=== PATIENT | female | born 1975 | race Caucasian/White ===

== ENCOUNTER → 2021-09-15 02:10 | Outpatient (CLI) | payer BC, SELFPAY ==
[2021-09-15 18:05] LABS: Influenza Control Positive
[2021-09-16 03:58] LABS: SARS-CoV-2 RNA PCR Negative
== END ==
PROVIDERS: PCP Family Medicine; Visit Provider Physician Assistant
DX: R05.9 Cough, unspecified (principal); R50.9 Fever, unspecified; R68.89 Other general symptoms and signs; Z20.822 Contact with and (suspected) exposure to COVID-19
CPT/HCPCS: 87804; C9803; U0003; U0005

== ENCOUNTER → 2021-09-24 06:54 | Outpatient (CLI) | payer BC, SELFPAY ==
--- NOTE | ~2021-09-24 | XR_ITS ---
XR chest 2V DATE: 09/24/2021 07:09 INDICATION: Cough TECHNIQUE: PA and lateral views COMPARISON: 06/15/2017 PA chest FINDINGS: Normal heart size. No hilar or mediastinal enlargement. No pulmonary infiltrate or consolid ation, pleural effusion or pulmonary vascular congestion or pneumothorax. Included skeletal structures are unremarkable. IMPRESSION: No active cardiopulmonary disease Reviewed, dictated and finalized at location A. HOME HEALTH
== END ==
PROVIDERS: PCP Family Medicine; Visit Provider Physician Assistant
DX: R05.9 Cough, unspecified (principal)
CPT/HCPCS: 71046

== ENCOUNTER → 2021-11-18 09:17 | Outpatient (CLI) | payer BC, SELFPAY ==
[2021-11-18 16:39] LABS: SARS-CoV-2 RNA PCR Negative
== END ==
PROVIDERS: PCP Family Medicine; Visit Provider Dermatology
DX: R50.9 Fever, unspecified (principal); Z20.822 Contact with and (suspected) exposure to COVID-19
CPT/HCPCS: C9803; U0003; U0005

== ENCOUNTER → 2022-04-29 12:39 | Outpatient (CLI) | payer BC, SELFPAY ==
--- NOTE | ~2022-04-29 | US_ITS ---
US thyroid INDICATION: Follow-up thyroid nodule TECHNIQUE: Real-time sonographic images of the thyroid gland were obtained. COMPARISON: No prior studies for comparison. FINDINGS: The right thyroid lobe measures 4.5 x 2.3 x 2.3 cm. The left thyroid lobe measures 4.1 x 1 .2 x 1.1 cm. There is normal echotexture and echogenicity throughout the thyroid gland. There is a so lid right thyroid hyperechoic mass which is wider than tall, ill-defined margins and no echogenic foc i. This mass measures 2.6 x 2.2 x 2 cm, increased compared with prior study when it measured 2 x 1.6 x 1.5 cm. This is thyroid classification TR 3 and meets criteria for ultrasound-guided fine-needle as piration biopsy. Normal vascular flow is present. IMPRESSION: 1. Large and right thyroid nodule measuring up to 2.6 cm. Ultrasound-guided fine-needle aspiration b iopsy recommended. Reviewed, dictated and finalized at location A. IMPRESSION: 1. Large and right thyroid nodule measuring up to 2.6 cm. Ultrasound-guided fi ne-needle aspiration biopsy recommended.
== END ==
PROVIDERS: PCP Family Medicine; Visit Provider Physician Assistant
DX: E04.1 Nontoxic single thyroid nodule (principal)
CPT/HCPCS: 76536

== ENCOUNTER 2022-06-10 08:22 | Outpatient (CLI) | payer BC, SELFPAY ==
--- NOTE | ~2022-06-10 | MM_ITS ---
EXAMINATION: MM screening [facility] BI w diamond HISTORY: Screening mammogram TECHNIQUE: Craniocaudal and mediolateral oblique 3-D tomosynthesis images were obtained and synthetic 2-D images were generated. CAD analysis was submitted and interpreted. COMPARISON: 10/25/2018, 08/29/2017, 08/21/2007 BREAST PARENCHYMAL COMPOSITION: There are scattered areas of fibroglandular density. FINDINGS: There is no suspicious mass, calcification, or architectural distortion to suggest malignan cy in either breast. There has been no suspicious interval change. IMPRESSION: 1. No mammographic evidence of malignancy. 2. Recommend routine screening mammography in one year. BI-RADS Category 1: Negative Reviewed, dictated and finalized at location A.
== END 2022-06-10 08:23 | disposition home or self-care (01) ==
LOC: ANHIMG 08:23
PROVIDERS: PCP Family Medicine; Visit Provider Physician Assistant
DX: Z12.31 Encounter for screening mammogram for malignant neoplasm of breast (principal)
CPT/HCPCS: 77063; 77067

== ENCOUNTER 2022-07-23 09:29 | Outpatient (CLI) | payer BC, SELFPAY ==
--- NOTE | ~2022-07-23 | XR_ITS ---
EXAMINATION: XR chest 2V DATE: 07/23/2022 09:45 INDICATION: Fever, cough and congestion TECHNIQUE: PA and lateral views of the chest were obtained. COMPARISON: Chest radiograph dated 09/24/2021 FINDINGS: The lungs remain clear with no focal airspace opacities, pulmonary edema, pleural effusion or pneumot horax. The cardiomediastinal silhouette is normal. Mild to moderate thoracic spondylosis. IMPRESSION: 1. No acute cardiopulmonary disease. Reviewed, dictated and finalized at location B.
== END 2022-07-23 09:30 | disposition home or self-care (01) ==
LOC: ANHIMG 09:35
PROVIDERS: PCP Family Medicine; Visit Provider Physician Assistant
DX: R05.9 Cough, unspecified (principal)
CPT/HCPCS: 71046

== ENCOUNTER 2022-07-28 09:37 | Outpatient (CLI) | payer BC, SELFPAY ==
--- NOTE | ~2022-07-28 | CT_ITS ---
EXAMINATION: CT diagnostic chest wo con DATE: 07/28/2022 09:53 INDICATION: Chronic cough, shortness of breath TECHNIQUE: Computed tomography (CT) of the chest was performed without intravenous contrast. The dose -length product (DLP) was 561.54 mGy-cm. Automated exposure control and iterative reconstruction tech nique were employed. COMPARISON: None FINDINGS: There is a 7 mm nodule in the right lower lobe. The lungs are free of focal airspace opacit ies. No pleural effusion or pneumothorax. There is a moderate-sized hiatal hernia. No pathologically enlarged thoracic lymph nodes are identified. The heart size is normal. There is mild thoracic spondy losis. IMPRESSION: 1. No CT correlate for the patient's symptoms. 2. Indeterminate nodule of the right lower lobe. Follow-up low-dose CT in 6-12 months is recommended. Reviewed, dictated and finalized at location B. CLERK
== END 2022-07-28 09:38 | disposition home or self-care (01) ==
PROVIDERS: PCP Family Medicine; Visit Provider Nurse Practitioner Family
DX: R05.3 Chronic cough (principal); R06.02 Shortness of breath
CPT/HCPCS: 71250

== ENCOUNTER 2022-09-01 15:17 | Outpatient (CLI) | payer BC, SELFPAY ==
[2022-09-01 16:07] LABS: Influenza A QL RT-PCR Negative (Negative); Influenza B QL RT-PCR Negative (Negative); SARS-CoV-2 RNA PCR Positive
== END 2022-09-01 15:18 | disposition home or self-care (01) ==
LOC: ANHLAB 15:19
PROVIDERS: PCP Family Medicine; Visit Provider Physician Assistant
DX: U07.1 COVID-19 (principal)
CPT/HCPCS: 87636

== ENCOUNTER → 2022-12-08 15:01 | Outpatient (CLI) | payer BC, SELFPAY ==
--- NOTE | ~2022-12-08 | XR_ITS ---
XR hip BI 2V w AP pelvis DATE: 12/08/2022 15:21 INDICATION: Right hip pain TECHNIQUE: AP pelvis. AP and lateral views of each hip. COMPARISON: 01/2016 right hip FINDINGS: Transitional lumbosacral vertebra. Normal alignment at the pubic symphysis and sacroiliac joints. No pelvic fracture or bone destruction is detected. Minimal degenerative spurring of the left femoral head consistent with mild osteoarthritis. No fractu re or dislocation, avascular necrosis or bone destruction of the hips is noted. IMPRESSION: Mild left hip osteoarthritis Reviewed, dictated and finalized at location B.
== END ==
PROVIDERS: PCP Family Medicine; Visit Provider Physician Assistant
DX: M25.551 Pain in right hip (principal); M16.12 Unilateral primary osteoarthritis, left hip
CPT/HCPCS: 73521

== ENCOUNTER 2023-04-13 14:22 | Outpatient (CLI) | payer BC, SELFPAY ==
--- NOTE | ~2023-04-13 | CT_ITS ---
EXAMINATION: CT diagnostic chest wo con DATE: 04/13/2023 14:54 INDICATION: Solitary pulmonary nodule TECHNIQUE: Computed tomography (CT) of the chest was performed without intravenous contrast. The dose -length product was 252.22 mGy-cm. Automated exposure control and iterative reconstruction technique were employed. COMPARISON: CT dated 07/28/2022 FINDINGS: Moderate size hiatal hernia. Heart size normal. No significant pleural or pericardial effus ion. No thoracic lymphadenopathy. No significant vascular abnormality. The upper abdomen is unremarka ble. Stable 7 mm right lower lobe nodule, image 75, likely benign. Follow-up low dose CT chest in 12 months recommended. Mild thoracic spondylosis. IMPRESSION: 1. Stable 7 mm right lower lobe nodule, likely benign. Follow-up low dose CT chest and 12 months ellyn mmended. Reviewed, dictated and finalized at location A. IMPRESSION: 1. Stable 7 mm right lower lobe nodule, likely benign. Follow-up low dose CT ch est and 12 months recommended.
== END 2023-04-13 14:23 | disposition home or self-care (01) ==
PROVIDERS: PCP Family Medicine; Visit Provider Physician Assistant
DX: R91.1 Solitary pulmonary nodule (principal)
CPT/HCPCS: 71250

== ENCOUNTER 2023-05-09 09:10 | Emergency (ER) | payer BC, SELFPAY ==
[2023-05-09 09:24] VITALS: BP 131/82; PULSE 101; RESP 16; TEMP 36.5; O2SAT 99
--- NOTE | 2023-05-09 09:29 | ED.URI ---
HPI - URI/Sore Throat General Chief Complaint: Upper Respiratory Infection Stated Complaint: Sore Throat Time Seen by Provider: 05/09/23 09:30 Source: patient, RN notes reviewed and old records reviewed Mode of arrival: ambulatory Limitations: no limitations History of Present Illness HPI Narrative: 48-year-old female presents to the [facility] with complaints of a sore throat since Tuesday. Also reports a horse voice. Reports since Tuesday she has had intermittent shortness of breath, generalized chest tightness without chest pain. No radiation of pain. Does not travel to her jaw, chest. No nausea or vomiting. Denies becoming diaphoretic. Denies fevers. No treatment prior to arrival Related Data Home Medications Medication Instructions Recorded Confirmed Mirapex 1.5 mg PO DAILY 05/09/23 05/09/23 Plaquenil 200 mg PO DAILY 05/09/23 05/09/23 duloxetine 60 mg capsule,delayed 60 mg PO DAILY 05/09/23 05/09/23 release hydroxyzine HCl 10 mg PO 05/09/23 Allergies Allergy/AdvReac Type Severity Reaction Status Date / Time meperidine Allergy Unknown unk Verified 05/09/23 09:32 triamcinolone Allergy Unknown unk Verified 05/09/23 09:32 DEMEROL AdvReac Unknown SEVERE N/V Uncoded 05/09/23 09:32 Review of Systems Review of Systems: All systems reviewed & are unremarkable except as noted in HPI and below Constitutional: Constitutional: Reports no additional constitutional complaints Eyes: Eyes: Reports no additional eye complaints ENT: Reports as per HPI and Reports sore throat Cardiovascular: Cardiovascular: Reports no additional cardiovascular complaints, Denies chest pain and Denies dyspnea Respiratory: Respiratory: Denies chest congestion, Denies cough and Reports dyspnea Gastrointestinal: Gastrointestinal: Reports no additional gastrointestinal complaints, Denies abdominal pain, Denies nausea and Denies vomiting Musculoskeletal: Musculoskeletal: Reports no additional musculoskeletal complaints Integumentary/Breasts: Skin/Breast: Reports system reviewed and no additional complaints, except as docu Neurologic: Reports system reviewed and no additional complaints, except as documented Psychiatric: Psychiatric: Reports no additional psychiatric complaints Allergic/Immunologic: Allergic/Immunologic: Reports no additional allergic/immunologic complaints PMFSH Past Medical History Medical History Undifferentiated connective tissue disease Surgical History Surgical History Status post peroneal tendon repair Social History Social History Smoking status: Never smoker Alcohol intake: never Substance use: never Living arrangements: with family Occupation/Education: occupation Gender identity (if verbalized by the patient): Female Sexual Orientation (if Verbalized by the Patient): Straight or Heterosexual Spiritual care concerns: No Comments At the time of my signature, I reviewed and agree with the nursing past medical, surgical, social, and family history. There is no relevant family history pertinent to the patient complaint. Exam Const: General: cooperative, healthy appearing, comfortable, no acute distress, well developed, alert and well nourished Nutritional Appearance: well nourished and obese Orientation/consciousness: patient oriented x3 Limitations: no limitations HENMT: Head: normal to inspection Ears: hearing grossly normal bilaterally, external ears normal, TM's normal bilaterally and EAC's normal Face/Nose/Sinus: Normal external nose present, Normal nares present, Normal nasal mucous membranes and turbinates present and normal facial exam Face and sinus: normal facial exam, sinuses nontender and face symmetric Mouth: Yes Normal oral and palatal mucosa present, Yes lip normal, Yes tongue normal and Yes moist mucous membranes
== END 2023-05-09 10:05 | disposition home or self-care (01) ==
PROVIDERS: Emergency Provider Nurse Practitioner; PCP Family Medicine
DX: J06.9 Acute upper respiratory infection, unspecified (principal); J04.0 Acute laryngitis
CPT/HCPCS: 87081; 87880; 99213; G0463

== ENCOUNTER 2024-04-14 13:44 | Emergency (ER) | payer BC, SELFPAY ==
--- NOTE | 2024-04-14 14:36 | ED.URI ---
HPI - URI/Sore Throat General Chief Complaint: Upper Respiratory Infection Stated Complaint: COUGH/CONGESTION/SORE THROAT/WHEEZING Time Seen by Provider: 04/14/24 15:13 Source: patient and RN notes reviewed Mode of arrival: ambulatory Limitations: no limitations History of Present Illness HPI Narrative: 49-year-old female presents with concern for cough, sinus drainage, sinus congestion, wheezing this started on Tuesday. She reports she had a negative COVID test on . Reports she has been taking [id number] cold and cough medicine without relief. MD elicited complaint: cough Related Data Home Medications Medication Instructions Recorded Confirmed duloxetine 60 mg capsule,delayed 60 mg PO HS 07/27/23 04/14/24 release calcium carbonate (Calcium 600) 600 mg PO DAILY 04/14/24 04/14/24 cholecalciferol (vitamin D3) 125 125 mcg PO DAILY 04/14/24 04/14/24 mcg (5,000 unit) tablet (Vitamin D3) cholestyramine (with sugar) 4 gram 4 g PO DAILY 04/14/24 04/14/24 powder for susp in a packet cyanocobalamin (vitamin B-12) 500 500 mcg PO DAILY 04/14/24 04/14/24 mcg tablet (Vitamin B-12) dicyclomine 20 mg tablet 20 mg PO PRN PRN Stomach Upset 04/14/24 04/14/24 duloxetine 30 mg capsule,delayed 30 mg PO QAM 04/14/24 04/14/24 release hydroxychloroquine 200 mg tablet 200 mg PO BID 04/14/24 04/14/24 hydroxyzine HCl 10 mg tablet 10 mg PO BID 04/14/24 04/14/24 levothyroxine 137 mcg tablet 137 mcg PO DAILY 04/14/24 04/14/24 (Synthroid) omega-3 fatty acids 1,000 mg PO DAILY 04/14/24 04/14/24 prazosin 1 mg capsule 1 mg PO HS 04/14/24 04/14/24 quetiapine 50 mg tablet 50 mg PO HS 04/14/24 04/14/24 Allergies Allergy/AdvReac Type Severity Reaction Status Date / Time meperidine Allergy Unknown unk Verified 04/14/24 14:59 triamcinolone Allergy Unknown unk Verified 04/14/24 14:59 DEMEROL AdvReac Unknown SEVERE N/V Uncoded 04/14/24 14:59 Review of Systems Review of Systems: CONSTITUTIONAL: Reports malaise, chills, sweats, or fever. EYES: Denies visual changes, redness, or discharge. ENT: Reports rhinorrhea, congestion, sinus pain CARDIOVASCULAR: Denies chest pain, palpitations, or edema. RESPIRATORY: Reports cough, wheeze. Denies dyspnea. GASTROINTESTINAL: Denies abdominal pain, nausea, vomiting, diarrhea SKIN: Denies rash or itching. MUSCULOSKELETAL: Denies myalgia. NEUROLOGIC: Denies headache. All systems reviewed & are unremarkable except as noted in HPI and below PMFSH Past Medical History Medical History Undifferentiated connective tissue disease Surgical History Surgical History Status post peroneal tendon repair Social History Social History Smoking status: Never smoker Alcohol intake: never Substance use: never Living arrangements: with family Occupation/Education: occupation Gender identity (if verbalized by the patient): Female Sexual Orientation (if Verbalized by the Patient): Straight or Heterosexual Spiritual care concerns: No Comments At time of signature, agree with nursing past medical, surgical, social and family history. There is no relevant family history pertinent to the presenting complaint Exam Narrative: GENERAL: Nontoxic-appearing, well-nourished, and in no acute distress. HEAD: Normocephalic EYES: PERRLA, conjunctivae clear ENT: Nares clear, clear discharge Mucous membranes moist. TM pearly ji with dull light reflex bilaterally; no tragal tenderness. Oropharynx not erythematous without lesions. Tonsils not enlarged and without exudate, no drooling, no hoarseness, no trismus, uvula midline. NECK: Supple. No lymphadenopathy CHEST: Clear to auscultation, breath sounds equal. No wheezing, rhonchi, rales, or stridor. No respiratory distress, speaks in full sentences. Harsh cough noted HEART: Regular rate a
== END 2024-04-14 15:28 | disposition home or self-care (01) ==
PROVIDERS: Emergency Provider Nurse Practitioner; PCP Family Medicine
DX: J40 Bronchitis, not specified as acute or chronic (principal); M35.9 Systemic involvement of connective tissue, unspecified
CPT/HCPCS: 99213; G0463

== ENCOUNTER 2024-05-01 09:31 | Outpatient (CLI) | payer BC, SELFPAY ==
--- NOTE | ~2024-05-01 | XR_ITS ---
XR knee LT min 4V Ordering provider: Mj Alberto PA-C History: . M25.561 - Pain in right knee . Comparison: None. FINDINGS: BONES: No acute fracture or dislocation. JOINT SPACES: Normal. Spurring of the tibial spines. SOFT TISSUES: Normal. IMPRESSION: No acute osseous abnormality left knee. Early osteoarthritic changes. Reviewed, dictated and finalized at location A.
--- NOTE | ~2024-05-01 | CT_ITS ---
EXAMINATION:CT diagnostic chest wo con DATE: 05/01/2024 09:42 INDICATION: Solitary pulmonary nodule. TECHNIQUE: Computed tomography (CT) of the chest was performed without intravenous contrast. Automate d exposure control and iterative reconstruction technique were employed. The dose-length product (DLP ) was 338.14 mGy-cm. COMPARISON: Chest CT 04/13/2023, 07/28/2022, thyroid ultrasound 02/20/2019 FINDINGS: There is a 7 mm nodule in right lung lower lobe, stable from 07/28/2022. No pleural effusion . There is a chronic 2.3 cm nodule in right thyroid lobe, likely benign. The heart size is normal. No pericardial effusion. There is a moderate-sized sliding hiatal hernia. There is severe cervical and thoracic spondylosis. IMPRESSION: 1. Chronic pulmonary nodule, likely benign. 2. Moderate-sized sliding hiatal hernia. Reviewed, dictated and finalized at location A.
--- NOTE | ~2024-05-01 | XR_ITS ---
XR knee RT min 4V Ordering provider: Mj Alberto PA-C History: . M25.561 - Pain in right knee . Comparison: None. FINDINGS: BONES: No acute fracture or dislocation. JOINT SPACES: Normal. Spurring of the tibial spines. SOFT TISSUES: Normal. IMPRESSION: No acute osseous abnormality right knee. Reviewed, dictated and finalized at location A.
== END 2024-05-01 09:32 ==
LOC: MICIMG 09:32
PROVIDERS: PCP Family Medicine; Visit Provider Physician Assistant
DX: R91.1 Solitary pulmonary nodule (principal); M25.561 Pain in right knee; M25.562 Pain in left knee; K44.9 Diaphragmatic hernia without obstruction or gangrene
CPT/HCPCS: 71250; 73564

== ENCOUNTER 2024-10-17 08:28 | Emergency (ER) | payer BC, SELFPAY ==
--- NOTE | ~2024-10-17 | CT_ITS ---
EXAMINATION: CTA chest PE protocol DATE: 10/17/2024 13:33 INDICATION: Pleuritic chest pain and tachycardia TECHNIQUE: Computed tomography (CT) pulmonary angiogram of the chest was performed with 100 mL Omnipa que-350 intravenous contrast. Additional 3D reconstructions utilizing coronal maximum intensity proje ction (MIP) were performed. Automated exposure control and iterative reconstruction technique were em ployed. The dose-length product was 806.92 mGy-cm. COMPARISON: Chest CT dated 05/01/2024 FINDINGS: No pulmonary embolism. 8 mm nodule at the azygos esophageal recess of the right lower lobe, increased from 5 mm on study dated 09/10/2013 and 7 mm on study dated 07/28/2022. The nodule demonstrates regio ns of less than fluid attenuation on both the current and the prior study consistent with fat within a benign pulmonary hamartoma. No pneumonia, pulmonary edema, pleural effusion or pneumothorax. Arch s ize is normal. No pericardial effusion. Thoracic aorta is normal in caliber with no dissection. No pa thologically enlarged thoracic lymphadenopathy. Moderate-sized sliding-type hiatal hernia. Interval appearance of a multinodular goiter. 1.2 cm cyst in the right hepatic lobe. Moderate thoracic spondyl osis. IMPRESSION: 1. No pulmonary embolism or other acute cardiopulmonary disease. Reviewed, dictated and finalized at location B. HYSICAL E LOGGER
--- NOTE | ~2024-10-17 | XR_ITS ---
EXAMINATION: XR chest 2V DATE: 10/17/2024 09:03 INDICATION: Chest pain. TECHNIQUE: Frontal and lateral views of the chest were obtained. COMPARISON: Chest 2 views 07/23/2022, chest CT 05/01/2024 FINDINGS: There is no pneumonia, pleural effusion, or pneumothorax. The heart size is normal. There i s a moderate-sized hiatal hernia. IMPRESSION: 1. Moderate-sized hiatal hernia. Reviewed, dictated and finalized at location A. ET MAKER PORK
--- NOTE | 2024-10-17 08:32 | ECG_ITS ---
Test Date: 2024-10-17 08:35:15 Measurements Intervals [place] Rate: 92 P: 51 ME: 186 QRS: -31 QRSD: 82 T: 25 QT: 323 QTc: 401 Interpretive Statements SINUS RHYTHM MARKED LEFT AXIS DEVIATION [QRS AXIS < -30] LOW QRS VOLTAGE IN PRECORDIAL LEADS [QRS DEFLECTION < 1.0 mV IN CHEST LEADS] No previous ECG available for comparison Electronically Signed On 10-17-2024 16:03:37 FOOD SAMPLER by Eldon Riggs M.D.
[2024-10-17 08:46] VITALS: BP 117/73; PULSE 109; RESP 18; TEMP 36.4; O2SAT 100
[2024-10-17 08:52] LABS: Basophils Percent Auto 0.2 % (0.2-1.2); Eosinophils Percent Auto 0.1 % (0-4.4); Hematocrit 39.1 % (37.0-47.0); Hemoglobin 13.8 g/dL (12.0-15.0); Immature Granulocyte Absolute 0.06 K/mm3 (0.00-0.031); Immature Granulocyte Percent A 0.7 % (0-0.5); Lymphocytes Absolute Auto 0.94 K/mm3 (0.9-3.2); Lymphocytes Percent Auto 10.5 % (18.3-44.2); Mean Corpuscular HGB Conc 35.3 g/dl (32-36); Mean Corpuscular Hemoglobin 30.7 pg (26-34); Mean Corpuscular Volume 86.9 fl (80-100); Mean Platelet Volume 10.1 fl (7.4-10.4); Monocytes Absolute Auto 0.4 K/mm3 (0.1-0.6); Monocytes Percent Auto 4.5 % (2.6-8.5); Neutrophils Absolute Auto 7.5 K/mm3 (1.3-6.7); Platelet Count Result 253 k/mm3 (150-375); Red Cell Distribution Width 12.4 % (11.5-14.5)
[2024-10-17 09:08] LABS: Alanine Aminotransferase 31 U/L (6-35); Alkaline Phosphatase 95 U/L (38-126); Anion Gap 9 mmol/L (4-12); Aspartate Amino Transferase 25 U/L (14-36); Bilirubin,Total 0.6 mg/dL (0.2-1.3); Blood Urea Nitrogen 10 mg/dL (7-17); Calcium 9.5 mg/dL (8.4-10.2); Carbon Dioxide 27 mmol/L (22-30); Chloride 102 mmol/L (98-107); Estimated CRCL calculation 111 ml/min; Estimated Glomerular Filt Rate > 60; Glucose 122 mg/dL (65-110); Lipase 380 U/L (23-300); Potassium 3.7 mmol/L (3.4-5.0); Sodium 138 mmol/L (137-145)
[2024-10-17 09:19] LABS: Troponin I < 0.012 ng/mL (0.000-0.034)
[2024-10-17 09:37] LABS: Prothrombin Time 13.8 Seconds (11.1-14.7)
[2024-10-17 09:38] LABS: Partial Thromboplastin Time 22.9 Seconds (22.3-36.8)
[2024-10-17 10:39] VITALS: BP 119/66; PULSE 88; RESP 18; TEMP 36.6; O2SAT 100
[2024-10-17] MEDS: ASPIRIN 81 MG CHEWABLE TABLET 324 MG PO (10:49)
--- NOTE | 2024-10-17 11:23 | ECG_ITS ---
Test Date: 2024-10-17 11:26:53 Measurements Intervals [place] Rate: P: 0 ME: 0 QRS: 0 QRSD: 0 T: 0 QT: 0 QTc: 0 Interpretive Statements SINUS RHYTHM LEFT AXIS DEVIATION Compared to ECG 10/17/2024 08:35:15 NO SIGNIFICANT CHANGES Electronically Signed On 10-17-2024 16:08:46 COMMERCIAL REAL ESTATE AGENT by Eldon Riggs M.D.
--- NOTE | 2024-10-17 11:30 | ED_ITS ---
HPI - General Adult General Chief complaint: Chest Pain Stated complaint: day 3 of chest pain Time Seen by Provider: 10/17/24 10:37 History of Present Illness HPI narrative: 49-year-old female history disorder presented to the emergency department for evaluation for chest wall pain that radiates from sternum to bilateral chest. Patient reports does have a prior history of costochondritis and felt that is what was causing her symptoms. 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 Patient reports this is not yet help with her pain. Patient presented emergency department for evaluation of the worsening pain. Patient has no prior history pulmonary embolism. Patient does report some shortness of breath due to inability to take a deep breath secondary to pain. Patient denies any prior cardiac history. Patient is not hypoxic the patient did have tachycardia upon arrival to the emergency department. Related Data Home Medications ?Medication ?Instructions ?Recorded ?Confirmed ?Last Taken ?Type duloxetine 60 mg capsule,delayed 60 mg PO HS 07/27/23 05/22/24 Unknown History release calcium carbonate (Calcium 600) 600 mg PO DAILY 04/14/24 05/22/24 Unknown History cholecalciferol (vitamin D3) 125 125 mcg PO DAILY 04/14/24 05/22/24 Unknown History mcg (5,000 unit) tablet (Vitamin D3) cholestyramine (with sugar) 4 gram 4 g PO DAILY 04/14/24 05/22/24 Unknown History powder for susp in a packet cyanocobalamin (vitamin B-12) 500 500 mcg PO DAILY 04/14/24 05/22/24 Unknown History mcg tablet (Vitamin B-12) dicyclomine 20 mg tablet 20 mg PO PRN PRN Stomach Upset 04/14/24 05/22/24 Unknown History duloxetine 30 mg capsule,delayed 30 mg PO QAM 04/14/24 05/22/24 Unknown History release hydroxychloroquine 200 mg tablet 200 mg PO BID 04/14/24 05/22/24 Unknown History hydroxyzine HCl 10 mg tablet 10 mg PO BID 04/14/24 05/22/24 Unknown History levothyroxine 137 mcg tablet 137 mcg PO DAILY 04/14/24 05/22/24 Unknown History (Synthroid) omega-3 fatty acids 1,000 mg PO DAILY 04/14/24 05/22/24 Unknown History prazosin 1 mg capsule 1 mg PO HS 04/14/24 05/22/24 Unknown History quetiapine 50 mg tablet 50 mg PO HS 04/14/24 05/22/24 Unknown History Allergies Allergy/AdvReac Type Severity Reaction Status Date / Time triamcinolone Allergy Unknown unk Verified 05/22/24 10:34 meperidine AdvReac Severe N/V Verified 10/17/24 08:34 Review of Systems 2 Review of Systems: All systems reviewed & are unremarkable except as noted in HPI and below [facility] Past Medical History Medical History Undifferentiated connective tissue disease Surgical History Surgical History Status post peroneal tendon repair Social History Social History Smoking status: Never smoker Alcohol intake: never Substance use: never Do You Feel Safe in your Home?: Yes Lack of Transportation: No Lack of Food: Never True Current Housing: I Have Housing Concerned About Future Housing: No Difficulty Paying Gas/Electric Bills: No Difficulty Paying for Meds: No Currently Unemployed: No Education: Associate Degree Difficulty w/ Childcare or Family Care: No Living arrangements: with family Occupation/Education: occupation Gender identity (if verbalized by the patient): Female Sexual Orientation (if Verbalized by the Patient): Straight or Heterosexual Spiritual care concerns: No Exam 2 Narrative: APPEARANCE: Well appearing, no pain, no distress, well-nourished. HEAD: normocephalic, atraumatic. EYES: PERRLA/EOMI, conjunctivae clear. NOSE: Normal no drainage EARS:TMS clear with good light reflex. THROAT: Pharynx clear, no exudate. NECK: Supple. No adenopathy, no masses. RESPIRATORY: Airway patent, respirations nonlabored. Clear to auscultation bilaterally, no rales, rhonchi, wheezing. CARDIOVASCULAR: Regular rate and rhythm without murmurs rubs or gallops. ABDOMINAL: Soft, nontender, nondistended, normal bowel sounds MUSCULOSKELETAL: Reproducible chest wall tenderness to palpation at lateral edges sternum bilaterally more significant on right than left. NEURO: Alert. Cranial nerves II through XII intact. Grossly intact SKIN: No rash, or ecchymosis site of reproducible chest wall pain Course Vital Signs Vital signs: Vital Signs Temperature 97.5 F L 10/17/24 08:46 Pulse Rate 109 H 10/17/24 08:46 Respiratory Rate 18 10/17/24 08:46 Blood Pressure 117/73 10/17/24 08:46 Pulse Oximetry 100 10/17/24 08:46 Temperature 97.9 F 10/17/24 10:39 Pulse Rate 88 10/17/24 16:33 Respiratory Rate 20 10/17/24 16:33 Blood Pressure 109/57 L 10/17/24 16:33 Pulse Oximetry 97 10/17/24 16:33 Oxygen Delivery Room Air 10/17/24 10:39 Medical Decision Making MDM Narrative Medical decision making narrative: 49-year-old female presented emergency department for evaluation for sternal chest pain. Patient was afebrile with no leukocytosis and hemoglobin of 13.8. Patient has an INR 1.0. No significant abnormalities on the patient's CMP, she did have a glucose of 122. Patient's T bili AST ALT alk-phos a were normal, lipase was mildly elevated at 380. Patient had negative serial troponins and negative serial EKGs. CTA PE study was ordered to evaluate for the possibility of pulmonary embolism to to her pleuritic chest pain and shortness of breath with underlying autoimmune disease. CTA was negative for pulmonary embolism. Patient's exam is consistent her with costochondritis after exclusion of pneumonia, pulmonary embolism and ACS. Patient was updated the results of the workup. All questions concerns were addressed. Differential Diagnosis Differential Diagnosis: Pneumonia, pulmonary embolism, costochondritis, pneumothorax, COVID, RSV, influenza Vital Signs Vital Signs: Vital Signs Temperature 97.5 F L 10/17/24 08:46 Pulse Rate 109 H 10/17/24 08:46 Respiratory Rate 18 10/17/24 08:46 Blood Pressure 117/73 10/17/24 08:46 Pulse Oximetry 100 10/17/24 08:46 Temperature 97.9 F 10/17/24 10:39 Pulse Rate 88 10/17/24 16:33 Respiratory Rate 20 10/17/24 16:33 Blood Pressure 109/57 L 10/17/24 16:33 Pulse Oximetry 97 10/17/24 16:33 Oxygen Delivery Room Air 10/17/24 10:39 Lab Data Lab results reviewed: Yes I reviewed the patient's lab results. 10/17/24 08:44 10/17/24 08:44 Labs: Lab Results 10/17/24 10/17/24 Range/Units 08:44 11:21 WBC 9.0 (4.5-10.0) K/mm3 RBC 4.50 (4.2-5.4) M/mm3 Hgb 13.8 (12.0-15.0) g/dL Hct 39.1 (37.0-47.0) % MCV 86.9 (80-100) fl MCH 30.7 (26-34) pg MCHC 35.3 (32-36) g/dl RDW 12.4 (11.5-14.5) % Plt Count 253 (150-375) k/mm3 MPV 10.1 (7.4-10.4) fl Immature Gran % (Auto) 0.7 H (0-0.5) % Neut % (Auto) 84.0 H (45.5-73.1) % Lymph % (Auto) 10.5 L (18.3-44.2) % [place] % (Auto) 4.5 (2.6-8.5) % Eos % (Auto) 0.1 (0-4.4) % Baso % (Auto) 0.2 (0.2-1.2) % Lymph # (Auto) 0.94 (0.9-3.2) K/mm3 [place] # (Auto) 0.4 (0.1-0.6) K/mm3 Eos # (Auto) 0.0 (0-0.3) K/mm3 Baso # (Auto) 0.0 (0.0-0.1) K/mm3 Abs Immat Gran (auto) 0.06 H (0.00-0.031) K/mm3 Absolute Neuts (auto) 7.5 H (1.3-6.7) K/mm3 Absolute Nucleated RBC 0.000 (0.0-0.012) K/mm3 Nucleated RBC % 0.0 (0.0-0.2) % PT 13.8 (11.1-14.7) Seconds INR 1.0 APTT 22.9 (22.3-36.8) Seconds Sodium 138 (137-145) mmol/L Potassium 3.7 (3.4-5.0) mmol/L Chloride 102 (98-107) mmol/L Carbon Dioxide 27 (22-30) mmol/L Anion Gap 9 (4-12) mmol/L BUN 10 (7-17) mg/dL Creatinine 0.75 (0.7-1.0) mg/dL Estim Creat Clear Calc 111 ml/min Estimated GFR > 60 (59 - ) Glucose 122 H (65-110) mg/dL Calcium 9.5 (8.4-10.2) mg/dL Total Bilirubin 0.6 (0.2-1.3) mg/dL AST 25 (14-36) U/L ALT 31 (6-35) U/L Alkaline Phosphatase 95 (38-126) U/L Troponin I < 0.012 < 0.012 (0.000-0.034) ng/mL Total Protein 7.0 (6.3-8.2) g/dL Albumin 4.0 (3.5-5.1) g/dL Lipase 380 H (23-300) U/L Imaging Data Radiologist's impression: Impressions Chest X-Ray 10/17/24 09:14 IMPRESSION: 1. Moderate-sized hiatal hernia. Chest CTA 10/17/24 13:35 IMPRESSION: 1. No pulmonary embolism or other acute cardiopulmonary disease. Discharge Plan Discharge Clinical Impression: Acute costochondritis, Acute chest wall pain Patient Disposition: Home, Self-Care Condition: Stable Instructions: Antibiotic Form, Costochondritis (ED), Chest Wall Pain (ED) Additional Instructions: Ibuprofen for pain control. [place] as needed for additional pain control. Continue have close follow-up with your physicians. If you have any worsening symptoms then please call or return to the emergency department. Patient Language: [place] Prescriptions: New hydrocodone-acetaminophen 5-325 mg tablet 1 tablet PO Q12H PRN (Reason: pain) Qty: 14 0RF No Action levothyroxine [Synthroid] 137 mcg tablet 137 mcg PO DAILY prazosin 1 mg capsule 1 mg PO HS calcium carbonate [Calcium 600] 600 mg calcium (1,500 mg) Tablet 600 mg PO DAILY cyanocobalamin (vitamin B-12) [Vitamin B-12] 500 mcg Tablet 500 mcg PO DAILY dicyclomine 20 mg Tablet 20 mg PO PRN PRN (Reason: Stomach Upset) hydroxychloroquine 200 mg tablet 200 mg PO BID hydroxyzine HCl 10 mg tablet 10 mg PO BID Fish Oil Capsule 1,000 mg PO DAILY cholestyramine (with sugar) 4 gram Powder In Packet 4 g PO DAILY Rx Instructions: administer w/meal; avoid other meds within 1hr before or 4-6hr after dose duloxetine 30 mg capsule,delayed release(DR/EC) 30 mg PO QAM quetiapine 50 mg tablet 50 mg PO HS cholecalciferol (vitamin D3) [Vitamin D3] 125 mcg (5,000 unit) Tablet 125 mcg PO DAILY albuterol sulfate 90 mcg/actuation HFA aerosol inhaler 2 puff INHALATION QID PRN (Reason: shortness of breath or wheezing) Qty: 8.5 0RF duloxetine 60 mg capsule,delayed release(DR/EC) 60 mg PO HS folic acid 1 mg tablet See Rx Instructions .ROUTE .COMPLEX Qty: 90 3RF Dose Instruction: TAKE 1 TABLET BY MOUTH DAILY Rx Instructions: TAKE 1 TABLET BY MOUTH DAILY lisinopril 10 mg tablet See Rx Instructions .ROUTE .COMPLEX Qty: 90 3RF Dose Instruction: TAKE 1 TABLET BY MOUTH DAILY Rx Instructions: TAKE 1 TABLET BY MOUTH DAILY metoprolol succinate 25 mg tablet extended release 24 hr 25 mg PO DAILY Qty: 90 2RF Follow-up/Referrals: Srinath Paz MD [Primary Care Provider] - Quality HEART score for chest pain patients History: slightly suspicious ECG: normal Age: > 45 and < 65 years Risk factors: 1 or 2 risk factors Troponin: < or = to 1x normal limit Heart score: 2
[2024-10-17 11:54] LABS: Troponin I < 0.012 ng/mL (0.000-0.034)
[2024-10-17] MEDS: HYDROmorphone HCL INJ (*CRX) 1 MG/ML SYR 0.5 MG IV PUSH (12:20)
--- OUTSIDE RECORDS SUMMARY | 2024-10-17 12:20 | XMS_ITS | Clinical Summary ---
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 Active DULoxetine (CYMBALTA) 60 mg Capsule, Delayed Release(E.C.) Take 60 mg by mouth daily. Active HYDROcodone-ibu profen (VICOPROFEN) 7.5-200 mg Tablet Take 1 Tablet by mouth every 4 hours as needed for Pain, Moderate. Active Ibuprofen-Diphe nhydramine (ADVIL PM) 200-38 mg Tablet Take by mouth. Active cholestyramine, with sugar, (QUESTRAN) 4 gram Powder in Packet Take 1 Packet by mouth daily. Active escitalopram oxalate (LEXAPRO) 5 mg tablet Take 5 mg by mouth daily. 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 Active turmeric-turmer ic root extract 450-50 mg Capsule Take by mouth daily at bedtime. Active cyanocobalamin (VITAMIN B-12) 500 mcg tablet Take 1,000 mcg by mouth daily. Active folic acid (FOLVITE) 1 mg tablet Take 1 mg by mouth daily. Active hydroxychloroqu ine (PLAQUENIL) 200 mg tablet Take 200 mg by mouth daily. Active cholecalciferol , Vitamin D3, 5,000 unit Capsule Take 5,000 Units by mouth daily. Active HYDROcodone-gio taminophen (NORCO) 5-325 mg tablet Take 1 Tablet by mouth every 6 hours as needed for Pain, Moderate. Active diphenhydrAMINE (BENADRYL) 25 mg tablet Take 25 mg by mouth nightly as needed for Allergies. Active pramipexole (MIRAPEX) 0.5 mg tablet Take 0.5 mg by mouth daily at bedtime. 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 Gender Identity Not on file Sexual Orientation Not on file Last Filed Vital Signs Vital Sign Reading Time Taken Comments Blood Pressure 166/97 01/23/2018 10:14 AM CDT Pulse 114 01/23/2018 10:14 AM CDT Temperature - - Respiratory Rate - - Oxygen Saturation - - Inhaled Oxygen Concentration - - Weight 117.9 kg (260 lb) 01/23/2018 10:14 AM CDT Height 175.3 cm (5' 9 ) 01/23/2018 10:14 AM CDT Body Mass Index 38.4 01/23/2018 10:14 AM CDT Plan of Treatment Health Maintenance Due Date Last Done Comments DTAP/TDAP/TD VACCINES (1 - Tdap) 1996 HEPATITIS B VACCINES (1 of 3 - 19+ 3-dose series) 1996 CERVICAL CANCER SCREENING 2007 BREAST CANCER SCREENING 2017 COLORECTAL SCREENING 2022 Colorectal Cancer Screening 2022 FIT-DNA Q 3 years 2022 FIT/FOBT Q 1 year 2022 Flex Sig/CT Colonography Q 5 years 2022 INFLUENZA VACCINE (#1) 2024 6, 06/02/2015, 05/20/2014, Additional history exists Insurance BS BLUE ACCESS/TRUE BLUE PPO Care Teams General Pediatrician Relationship Specialty Start Date End Date Srinath Paz MD PCP - General Family Practice 06/18/15
--- OUTSIDE RECORDS SUMMARY | 2024-10-17 12:20 | XMS_ITS | Encounter Summary ---
Author Organization [facility] Healthcare Address [address] [place] [address] Care Team Providers Care Asphalt Heater Tender Name Role Phone Srinath Paz MD Primary Care Provider Reason for Visit * Diagnostic Imaging (Routine) - Pending Review Specialty Diagnoses / Procedures Referred By Contac jerald Referred To Contact Procedures Breast Imaging Screening Outside Reference Transcribed Order, Provider Referral ID Status Reason Start Date Expiration Date V isits Requested Visits Authorized [id number] Pending Review 12/29/2023 01/27/2025 1 1 Encounter Details Date Type Department Care Team (Late st Contact Info) Description 08/29/[address] [facility] [address] [place] [id number] Social History Tobacco Use Types Packs/Day Years Used Date Smoking Tobacco: Never Smokeless Tobacco: Never Alcohol Use Standard Drinks/Week Comments No 0 (1 standard drink = 0.6 oz pur e alcohol) AUDIT-C Answer Date Recorded Q1: How often do you have a drink containing alc ohol? Never 12/04/2021 Average Number of Drinks Not on file 022 Q3: How often do you have si x or more drinks on one occasion? 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 No / Unsure 11/29/2019 9:13 AM CDT documented as of this encounter Plan of Treatment Upcoming Encounters Date Type Department Care Team (Late st Contact Info) Description 01/16/2025 10:40 AM CDT Hospital Encounter [address] [address] Yesy Jorge MD [address] [facility] [address] [place] [address] 01/16/2025 10:40 AM CDT - 01/16/2025 11:10 AM CDT Surgery [address] [address] Yesy Jorge MD [address] [facility] [address] [place] [address] COLONOSCOPY Scheduled Procedures Name Priority Associated Diagnoses Date/Ti me COLONOSCOPY Screen for colon cancer Family history of colon cancer 01/16/2025 10:40 AM CDT documented as of this encounter Goals Goal Patient Goal Type Associated Problems Recent Progress Patient-Stated? Author CCM Chronic Pain Care Plan Chronic Care Management On track(2019 1:14 PM CAKE TESTER) No Ghislaine Cox RN Note: Problem: Chronic Pain Goals: 1. Minimize further functional decline 2. Maximize quality of life 3. Control pain Strategies: - Activity/exercise program recommendation - Conservative stepwise pain medicine strategy with multi-disciplinary approach - Recommend healthy lifestyle strategies and compensatory methods as needed documented as of this encounter Procedures Procedure Name Priority Date/Time Associated Diagnosis Comments BREAST IMAGING MG SCREENING OUTSIDE REFERENCE Routine 08/29/2017 12:00 AM CAKE TESTER documented in this encounter Results * Breast Imaging Screening Outside Reference (08/29/2017 12:00 AM CAKE TESTER) Impressions [facility] - 12/29/2023 2:24 PM CDT These images are for Reference purposes only and have not been reviewed by [facility] Radiology. ??There will be no report generated by a [facility] Radiologist. Narrative [facility] - 12/29/2023 2:24 PM CDT EXAMINATION: ??Images For Reference Purposes Only us Provider Transcribed Order IMG MAMMO PROCEDURES Final Result [facility] documented in this encounter Visit Diagnoses Not on filedocumented in this encounter Care Teams Asphalt Heater Tender Relationship Specialty Start Date End Date Srinath Paz MD [address] [place] [address] PCP - General 12/17/16 documented as of this encounter
--- OUTSIDE RECORDS SUMMARY | 2024-10-17 12:20 | XMS_ITS | Patient Health Record ---
Author Organization [facility] Address [address] [facility] [address] [place], [place] [id number] Care Team Providers Care Early Childhood Teacher Assistant Name Role Phone Jonny Lerner Unavailable [phone] NATHAN NICHOLE Unavailable Unavailable REASON FOR REFERRAL No Information MEDICATIONS Medication SIG (Take, Route, Fr equency, Duration) Notes Start Date End Date Status methotrexate 2.5 mg 10 tab(s) orally 1X/W for 30 1 Active traMADol 50 mg TAKE 1 TO 2 TABLETS BY MOUTH TID for 30 01/08/2008 Active PLAN OF TREATMENT No Information Insurance Providers Payer Name Payer Address Payer Phone Subscriber Number Group Number Insured Name Patient Relationship to Insured Coverage Start Date Coverage End Date BLUE ACCESS CHOICE [address] [place] [address] [id number] ANGEL BECERRIL Spouse - patient is the spouse of the insured 8
--- OUTSIDE RECORDS SUMMARY | 2024-10-17 12:21 | XMS_ITS | Encounter Summary ---
Author Organization [facility] Healthcare Address [address] [place] [address] Care Team Providers Care Medical Transcription Name Role Phone Srinath Paz MD Primary Care Provider Reason for Visit * Reason Onset Date Comments Pain/ Flare 10/16/2024 Encounter Details Date Type Department Care Team (Late st Contact Info) Description 10/16/2024 Telephone [facility] Medical [facility] Rheumatology at [facility] [address] [place] [id number] Carlota Hein, SAUSAGE TIER [address] [facility] [address] [place] [address] Pain/ Flare Social History Tobacco Use Types Packs/Day Years [...] on file Legal Sex Female 11:38 AM EMERGENCY COMMUNICATIONS OFFICER Gender Identity Not on file Sexual Orientation Straight 03/14/2020 4: 51 PM CDT documented as of this encounter Miscellaneous Notes * Telephone Encounter - Liza Barrett - 10/16/2024 2:55 PM CST Called patient and relayed detailed message from provider, patient states that the pain overall haseased up as the day has progressed. However she will go consult with PCP. GENCY COMMUNICATIONS OFFICER GENCY COMMUNICATIONS OFFICER * Telephone Encounter - Carlota Hein NP - 10/16/2024 10:10 AM CST This is certainly an odd presentation. Dr. Lovett saw her last so I'm gong to defer to her. I'm always cautious when a patient is describing more chest-like pain. GENCY COMMUNICATIONS OFFICER * Telephone Encounter - Liza Barrett - 10/16/2024 9:31 AM CST Pain or Flare: Both Location: Straight down Breastbone and radiates outward Side: In the middle of body. Swelling: No Warm to touch: Yes Any redness: No When did flare/pain start or how long has it been going on: The past week it has been getting more frequent What medication tried: 800 mg Ibuprofen Last office visit: 07/04/24 Pharmacy and number incase physician prescribes something: [place] in patients chart is up to date. Patient expresses that this has been and on and off issue that she has been experiencing since she was in [employer]. She expresses that during that time they ruled it out to be arthritis in her ribcage ultimately. Patient is stating that since this week on and off the pain is just increasingly getting worse, she can hardly take any deep breathes, hard to stand up straight, stretching which is causing her to be hunched over. Patient is overall just wondering if she can get an prescription of prednisone to help her out during this time. Please Advise GENCY COMMUNICATIONS OFFICER documented in this encounter Plan of Treatment Upcoming Encounters Date Type Department Care Team (Late st Contact Info) Description 01/16/2025 10:40 AM CDT Hospital Encounter [address] [address] Yesy Jorge MD [address] [facility] [address] [place] [address] 01/16/2025 10:40 AM CDT - 01/16/2025 11:10 AM CDT Surgery [address] [address] Yesy Jorge MD [address] [facility] [address] [place] [address] COLONOSCOPY Scheduled Procedures Name Priority Associated Diagnoses Date/Ti me COLONOSCOPY Screen for colon cancer Family history of colon cancer 01/16/2025 10:40 AM CDT documented as of this encounter Goals Goal Patient Goal Type Associated Problems Recent Progress Patient-Stated? Author CCM Chronic Pain Care Plan Chronic Care Management On track(2019 1:14 PM EMERGENCY COMMUNICATIONS OFFICER) No Ghislaine Cox, RN Note: Problem: Chronic Pain Goals: 1. Minimize further functional decline 2. Maximize quality of life 3. Control pain Strategies: - Activity/exercise program recommendation - Conservative stepwise pain medicine strategy with multi-disciplinary approach - Recommend healthy lifestyle strategies and compensatory methods as needed documented as of this encounter Visit Diagnoses Not on filedocumented in this encounter Care Teams Medical Transcription Relationship Specialty Start Date End Date Srinath Paz MD [address] [place] [address] PCP - General 12/17/16 documented as of this encounter
--- OUTSIDE RECORDS SUMMARY | 2024-10-17 12:21 | XMS_ITS ---
Author Organization [facility] [employer] [facility] Address [facility] [address] Care Team Providers Care Windows Server Administrator Name Role Phone Srinath Paz MD Primary Care Provider Maggie Leija Unavailable [phone] REASON FOR VISIT Appt. Social History Sex Assigned At : Social History Observation Description Sex Assigned At Female Encounters Encounter Location Date Provider Diagnosis [facility] [place] [address] [address] [address] 10/11/2024 Maggie Dutton Plan Of Treatment Next Appt Details Provider Name:Bambi Marlow, 11/05/2024 01:00:00 PM, [facility] [address], [address], [address], Provider Name:Maggie Dutton, 11/05/2024 02:15:00 PM, [facility] [address] [facility], [address], [address], Provider Name:Bambi Marlow, 11/19/2024 09:00:00 AM, [facility] [address], [address], Provider Name:Maggie Dutton, 11/19/2024 10:00:00 AM, [facility] [address], [address], Progress Notes * NATE BECERRIL LDOB:[birth year] (49 yo F)Acc No.[id number]:10/11/2024 Patient:?NATE BECERRIL :1975???Age:49 Y???Sex:Female Address:[facility] [address], [place], [address] * true * Date:? Generated for Josei shi/Seng/eTransmitting on:?10/17/2024 12:21 PM [employer]ING [employer]ES [employer]ANT
--- OUTSIDE RECORDS SUMMARY | 2024-10-17 12:21 | XMS_ITS | Clinical Summary ---
Author Organization [facility], formerly [facility] Address [address] [place] [address] Care Team Providers [facility] Name Role Phone Srinath Paz MD Primary Care Provider Allergies Active Allergy Reactions Criticality Noted Date Comments Cortisone Palpitations,Flushing (skin) Low 018 Meperidine Nausea & Vomiting,Vo miting,Nausea And Vomiting Medium 06/18/[address] (CYMBALTA) 60 mg capsule Take 1 capsule by mouth every day 90 1 10/09/19 15 Active folic acid (FOLVITE) 1 mg tablet Take 1 tablet (1 mg total) by mouth every morning Take one tablet everyday Active lisinopril (PRINIVIL,ZESTRIL) 10 mg tabletIndications: Essential hypertension Take 1 tablet (10 mg total) by mouth daily. 30 tablet 1 05/08/20 18 Active Additional Information Patient taking differently:10 mg oralEvery morning, Reported on 12/16/2022 cyanocobalamin (Vitamin B-12) 1,000 mcg tabletIndications: Prevention of Vitamin B12 Deficiency Take 1 tablet (1,000 mcg total) by mouth nightly Active cholecalciferol (VITAMIN D-3) 2000 unit capsule Take 2 capsules (4,000 Units total) by mouth daily 05/25/20 20 Active docosahexaenoic acid/epa (FISH OIL ORAL) Take 1 Dose by mouth nightly Active calcium carbonate/vitamin D3 (CALCIUM 500 + D, D3, ORAL) Take by mouth Act zoe hydrOXYzine (ATARAX) 10 mg tablet Take 1 tablet (10 mg total) by mouth 2 (two) times a day as needed 03/19/20 22 Active metoprolol XL (TOPROL-XL) 25 mg extended release tablet Take 1 tablet (25 mg total) by mouth daily 10/03/19 23 Active dicyclomine (BENTYL) 10 mg capsuleIndications :Irritable Bowel Syndrome Take 2 capsules (20 mg total) by mouth every 6 (six) hours as needed (Diarrhea or abdominal cramping) Take prn 120 capsule 3 02/22/20 23 Active prazosin (MINIPRESS) 1 mg capsule Take by mouth daily 05/05/20 23 Active ketoconazole (NIZORAL) 2 % cream APPLY TOPICALLY TO THE AFFECTED AREA DAILY 07/25/20 23 Active SUMAtriptan (IMITREX) 100 mg tabletIndications: Migraine Take 1 tablet (100 mg total) by mouth once as needed for migraine May repeat once in 2 hrs if headache persists. Max 2 tabs/24 hrs. 9 tablet 08/10/20 23 Active hydroxychloroquine (PLAQUENIL) 200 mg tablet TAKE 1 TABLET TWICE A DAY 180 tablet 3 12/05/19 24 Active Synthroid 137 mcg tabletIndications: Acquired hypothyroidism TAKE 1 TB BY MOUTH EVERY MORNING BEFORE BREAKFAST 90 tablet 1 12/05/19 24 Active QUEtiapine (SEROquel) 50 mg tablet Take 1 tablet (50 mg total) by mouth nightly as needed for sleep 12/22/19 24 Active pramipexole (MIRAPEX) 1.5 mg tabletIndications: Restless leg syndrome TAKE 2 TABLETS BY MOUTH DAILY AT BEDTIME 60 tablet 5 07/03/20 24 Active clonazePAM (KlonoPIN) 0.5 mg tabletIndications: REM behavioral disorder Take 1 tablet (0.5 mg total) by mouth nightly 30 tablet 5 09/04/20 24 Active Zepbound 2.5 mg/0.5 mL pen injectorIndication s:Class 3 severe obesity due to excess calories with serious comorbidity and body mass index (BMI) of 40.0 to 44.9 in adult (HCC) ADMINISTER 2.5 MG UNDER THE SKIN EVERY 7 DAYS 6 mL 09/06/20 24 Active methylPREDNISolone (MEDROL DOSEPACK) 4 mg Dosepack Take as directed on package 1 packet 10/16/19 25 025 Active Active Problems Problem Noted Date Diagnosed Date Screen for colon cancer 05/25/2024 Family history of colon cancer 05/25/2024 Acute pain of left shoulder 03/08/2024 Assessment & Plan (03/08/2024 12:43 PM CDT): Imaging today, return for IASI unless imaging suggests otherwise. Consider PT if not improving. Class 3 severe obesity due t o excess calories with serious comorbidity and body mass index (BMI) of 40.0 to 44.9 in adult 12/07/2022 Hoarseness of voice 06/29/2022 Thyroid nodule 05/21/2022 Neuropathy 07/29/2020 Assessment & Plan (04/15/2023 2:02 PM CDT): Saskia reports that her nerve pain is overall improved since her last visit. She is no longer taking gabapentin. She remains on Cymbalta per Psychiatry at 60 mg every morning and feels this has offered her some management of her neuropathic symptoms as well. Denies any for further intervention at this time. Could consider a tricyclic antidepressant or Horizant as her next line treatments. Plan: 1. Continue with Cymbalta as ordered by psych 2. Fall precautions reviewed. Assessment & Plan (12/04/2021 10:22 AM CDT): Saskia reports that she is having nerve pain in the left lower extremity that has progressively worsened since her surgeries. She has failed three sympathetic nerve blocks with pain management. She has been taking gabapentin nightly without much relief. She denies any medication side effects and is open to increasing her dose which we will taper today. She is tolerating her gabapentin dosing of 100 mg daily and 200 mg nightly. She denies any necessary changes in her treatment regimen at this time. Plan: 1. Gabapentin 200 mg nightly, 100 mg the morning, if her headache pattern does not improve we will plan to increase as tolerated. She verbalized understanding 2. Continue with Cymbalta as ordered by PCP. 3. Fall precautions reviewed. Assessment & Plan (05/29/2021 12:50 PM CDT): Saskia reports that she is having nerve pain in the left lower extremity that has progressively worsened since her surgeries. She has failed three sympathetic nerve blocks with pain management. She has been taking gabapentin nightly without much relief. She denies any medication side effects and is open to increasing her dose which we will taper today. She was recently taking 100 mg b.i.d., we previously discussed tapering her up to t.i.d. dosing but she did not taper any higher due to adequate pain control. She has recently tapered back down to 100 mg nightly. She is still having difficulty with sleep related to generalized pain, we will have her increase to 200 mg nightly, increase to 100 mg in the morning and 200 mg nightly in the near future as tolerated. Plan: 1. Gabapentin 200 mg nightly, we will plan to increase to 100 mg the morning, 200 mg nightly as tolerated in the near future. 2. Continue with Cymbalta as ordered by PCP. 3. Fall precautions reviewed. Assessment & Plan (03/24/2021 9:16 AM CDT): Saskia reports that she is having nerve pain in the left lower extremity that has progressively worsened since her surgeries. She has failed three sympathetic nerve blocks with pain management. She has been taking gabapentin nightly without much relief. She denies any medication side effects and is open to increasing her dose which we will taper today. Plan: 1. Gabapentin taper as ordered for her pain 2. Continue with Cymbalta as ordered by PCP. 3. Fall precautions reviewed. 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 She continues to take gabapentin nightly with adequate relief and denies any significant side effects. Peroneal tendonitis of left lower extremity 05/2020 Overview (07/28/2020): Added automatically from request for surgery [id number] Neuropathic pain 06/25/2020 Left ankle pain 06/17/2020 Tear of peroneal tendon 06/17/2020 Complex regional pain syndro me type 2 of left lower extremity 06/17/2020 Advice given about 2019 novel coronavirus by tel ephone 02/08/2020 Assessment & Plan (05/21/2020 11:11 PM CDT): The usual CDC precautions for minimizing coronavirus risk are appropriate. Frequently wash your hands with soap and water for at least 20 seconds. When soap and running water are unavailable, use an alcohol-based hand rub with at least 60% alcohol. Always wash hands that are visibly soiled. Avoid touching your eyes, nose, or mouth with unwashed hands. Avoid close contact with people who are sick and maintain social distancing. The CDC has recommended that ALL persons wear a fabric mask when out in public. Obviously this is a fast-moving issue and the CDC is providing regular updates as the course and extent of the epidemic is monitored. You may keep up to date at the CDC website: www.coronavirus.gov It is important that you continue to [id number] other than for essential outings. Feel free to reach out to us if you have additional questions after you review this information. Assessment & Plan (02/08/2020 10:48 AM CDT): The usual CDC precautions for minimizing coronavirus risk are appropriate. Frequently wash your hands with soap and water for at least 20 seconds. When soap and running water are unavailable, use an alcohol-based hand rub with at least 60% alcohol. Always wash hands that are visibly soiled. Avoid touching your eyes, nose, or mouth with unwashed hands. Avoid close contact with people who are sick and maintain social distancing. The CDC has recommended that ALL persons wear a fabric mask when out in public. Obviously this is a fast-moving issue and the CDC is providing regular updates as the course and extent of the epidemic is monitored. You may keep up to date at the CDC website: www.coronavirus.gov It is important that you adhere to the [id number] orders for the time being. Feel free to reach out to us if you have additional questions after you review this information. Peroneal tendon rupture 09/27/2019 Overview (09/27/2019): Added automatically from request for surgery [id number] Migraine without aura and wi thout status migrainosus, not intractable 08/07/2019 Assessment & Plan (08/14/2024 3:50 PM GRAIN FARMER): Her migraines are well controlled currently Continue sumatriptan as needed. Side effects reviewed Assessment & Plan (04/15/2023 2:01 PM CDT): She continues to endorse that her migraines are very well controlled at this time. She notes that she is having less than 5 headache days per month with only 1-2 migrainous episodes that she can treat with Nurtec ODT at the onset. She is been very happy with this regimen. Continues with regular chiropractic work as she feels her headaches stem from her cervical region. This is offer her the most relief. She is no longer requiring the use of gabapentin. She also takes Cymbalta for neuropathic pain, this is likely offering her some management of her migrainous episodes. Plan: 1. Headache diary 2. Caffeine avoidance 3. Continue with Cymbalta per Psychiatry 4. Continue with Nurtec ODT at the onset of acute headache. On 1 tablet every 24 hours 5. Follow-up 6-9 months. At today? s visit migraine education was performed. We discussed avoidance of migraine triggers and non-medicinal strategies for preventing migraines. Topics of discussion included improved sleep hygiene, healthy diet, and stress reduction techniques. We also discussed the importance of avoiding medication overuse, as this can promote analgesic rebound headache. Assessment & Plan (12/04/2021 10:21 AM CDT): Headache has been stable on current management until the past few days when she has noted a migrainous episode that she has been unable to break with her typical treatment regimen. At the onset of an acute headache, she will often take ibuprofen 200 mg 3-4 tablets with adequate relief. She continues to see a chiropractor who works on her neck, this has also offered her some relief of her headache pattern. We are also planning to taper her up on gabapentin which often offers headache pattern improvement. She is currently are suffering from 1-2 migrainous events per month. Feels that things are currently manageable with her current regimen and we are unable to give her something to break this cycle currently. Given her recent issues with multiple stress fractures, she would like to avoid steroid treatment. She has also been taking NSAIDs [id number] so we will avoid indomethacin. I will give her samples of Nurtec ODT 75mg to take every other day for 2 weeks to help break this current headache cycle. At today? s visit migraine education was performed. We discussed avoidance of migraine triggers and non-medicinal strategies for preventing migraines. Topics of discussion included improved sleep hygiene, healthy diet, and stress reduction techniques. We also discussed the importance of avoiding medication overuse, as this can promote analgesic rebound headache. Assessment & Plan (05/29/2021 12:49 PM CDT): Headache pattern is currently stable on current management. At the onset of an acute headache, she will often take ibuprofen 200 mg 3-4 tablets with adequate relief. She continues to see a chiropractor who works on her neck, this has also offered her some relief of her headache pattern. We are also planning to taper her up on gabapentin which often offers headache pattern improvement. She is currently are suffering from 1-2 migrainous events per month. Feels that things are currently manageable. Assessment & Plan (03/24/2021 9:23 AM CDT): Headache pattern is currently stable on current management. At the onset of an acute headache, she will often take ibuprofen 200 mg 3-4 tablets with adequate relief. She continues to see a chiropractor who works on her neck, this has also offered her some relief of her headache pattern. We are also planning to taper her up on gabapentin which often offers headache pattern improvement. Assessment & Plan (09/09/2020 1:52 PM GRAIN FARMER): Headache pattern is currently stable on current management. At the onset of an acute headache, she will often take ibuprofen 200 mg 3-4 tablets with adequate relief. She continues to see a chiropractor who works on her neck, this has also offered her some relief of her headache pattern. Assessment & Plan (02/08/2020 10:48 AM CDT): Managed by Neurologist. She ,mentions occasional tremor (intermittent) which she will discuss with Neuro. I have suggested she might start low dose enteric coated aspirin 81 mg daily. Restless leg syndrome 08/07/2019 Assessment & Plan (08/14/2024 3:51 PM GRAIN FARMER): The patient has a history of restless legs syndrome. She has been on pramipexole with benefit. She has recently noticed that she we will start thrashing around when she is sleeping. She has hit her before doing this. She has no history of seizures or convulsions. She is concerned about REM behavioral disorder. I will refer the patient to a sleep specialist to evaluate. She also reports significant insomnia issues and this can also be addressed. Assessment & Plan (12/04/2021 10:24 AM CDT): Ms. Becerril presents for evaluation of RLS. She ahs a longstanding history of RLS that has been well managed with pramipexole 1.5mg nightly. She denies any side effects of this medication. She reports that it continues to manage her symptoms well. She has noted some intermittent increase in her RLS symptoms with her LE pain. We are hopeful that the gabapentin will continue to help her overall symptoms as it has done so to date. Plan: 1. Continue pramipexole 1.5mg to be taken nightly. 2. Report any change in her symptoms. 3. Follow-up 6 months. Assessment & Plan (05/29/2021 12:51 PM CDT): Ms. Becerril presents for evaluation of RLS. She ahs a longstanding history of RLS that has been well managed with pramipexole 1.5mg nightly. She denies any side effects of this medication. She reports that it continues to manage her symptoms well. She has noted some intermittent increase in her RLS symptoms with her LE pain. We are hopeful that the gabapentin increase will also help with some of her overall symptoms. Plan: 1. Continue pramipexole 1.5mg to be taken nightly. 2. Report any change in her symptoms. 3. Follow-up 3-4 months. Assessment & Plan (03/24/2021 9:24 AM CDT): Ms. Becerril presents for evaluation of RLS. She ahs a longstanding history of RLS that has been well managed with pramipexole 1.5mg nightly. She denies any side effects of this medication. She reports that it continues to manage her symptoms well. She has noted some intermittent increase in her RLS symptoms with her LE pain. Plan: 1. Continue pramipexole 1.5mg to be taken nightly. 2. Report any change in her symptoms. 3. Follow-up 3-4 months. Assessment & Plan (09/09/2020 1:56 PM GRAIN FARMER): Ms. Becerril presents for evaluation of RLS. She ahs a longstanding history of RLS that has been well managed with pramipexole 1.5mg nightly. She denies any side effects of this medication. She reports that it continues to manage her symptoms well. She has noticed a slight increase in her left arm twitching at times, but the frequency has been waxing and waning. Plan: 1. Continue pramipexole 1.5mg to be taken nightly. 2. Report any change in her symptoms. 3. Follow-up 6-9 months. Fatty liver 02/05/2019 Overview (05/21/2020): Images from the original note were not included. Assessment & Plan (06/24/2021 5:39 PM CDT): Liver function is well maintained. I have discussion with the patient about the etiology of her fatty liver disease and relationship to weight. She will continue fish oil supplements. Follow-up in 1 year. Assessment & Plan (05/21/2020 11:14 PM CDT): Images from the original note were not included. Lab Results Component Value Date ALT 20 02/23/2020 AST 17 02/23/2020 ALKPHOS 106 02/23/2020 BILITOT 0.4 02/23/2020 Assessment & Plan (08/07/2019 1:46 PM GRAIN FARMER): Lab Results Component Value Date ALT 37 02/07/2019 AST 24 02/07/2019 ALKPHOS 98 02/07/2019 BILITOT 0.4 02/07/2019 Assessment & Plan (02/05/2019 5:04 PM CDT): Discussed with the patient fatty liver concept and risk factors. Patient otherwise is fish oral and will target her weight with the weight loss program. Rectal bleeding 02/05/2019 Assessment & Plan (02/05/2019 5:05 PM CDT): I suspect this is secondary to hemorrhoids. He had colonoscopy 2013 and noted with internal hemorrhoids. No worrisome signs. Patient was advised to call my office of the bleeding recurrence and at that time we will schedule colonoscopy for evaluation. Peroneal tendinosis, left 11/08/2018 Overview (02/07/2019): Images from the original note were not included. Assessment & Plan (05/21/2020 11:19 PM CDT): Images from the original note were not included. Ortho management reviewed: 44 y.o. female who is 6 months post left peroneus brevis tendon repair with excision of low-lying muscle belly, peroneal tenosynovectomy, and excision of a peroneus quartus. Unfortunately she had an acute changes symptoms 2 weeks after her last visit which would have been early January. The new MRI does not show any repeat tears, but she does have significant amount of tendinosis and tenosynovitis noted. These findings were discussed. ?? Plan: 1. We discussed both conservative and surgical management. For conservative management, I would recommend that she try Brisment procedure and steroid injection into the peroneal tendon sheath. I would also recommend boot immobilization following this procedure. For surgical management, I recommend a dorsiflexion osteotomy of the 1st metatarsal, plantar fascia release, and peroneus longus to brevis tenodesis. I would excise any repeat tear showed a find 1 during surgery. She also has a significant amount of sural nerve irritation. I would recommend resecting the nerve proximal to her incision. 2. She would like to proceed with conservative management this time. Therefore, I have referred her to Radiology for an ultrasound-guided Brisement procedure with steroid into her peroneal tendon sheath. 3. Recommend that she place her custom orthotic into the boot. She should wear the boot like a cast. 4. Follow-up in 6 weeks for repeat evaluation. ? All questions were answered. ? Binu Edmond MD Nursing Director Foot and Ankle Division Department of Orthopaedic Surgery [facility] ?? Assessment & Plan (02/07/2019 12:27 PM CDT): Images from the original note were not included. Essential hypertension 05/08/2018 Assessment & Plan (05/21/2020 11:11 PM CDT): Vitals Ht 175.3 cm (5' 9 ) BMI 37.36 kg/m?? Wt Readings from Last 3 Encounters: 02/08/20 114.8 kg (253 lb) 10/16/19 121.2 kg (267 lb 3.2 oz) 08/07/19 119.7 kg (264 lb) Temp Readings from Last 3 Encounters: 02/08/20 36.7 ??C (98.1 ??F) (Oral) 10/16/19 36.5 ??C (97.7 ??F) (Temporal) 08/07/19 36.7 ??C (98 ??F) (Oral) BP Readings from Last 3 Encounters: 02/08/20 136/85 10/16/19 112/56 08/07/19 122/84 Pulse Readings from Last 3 Encounters: 10/16/19 97 08/07/19 78 08/07/19 102 She is encouraged to check her blood pressure periodically (followed by Dr. Srinath Paz). Assessment & Plan (02/08/2020 10:43 AM CDT): Vitals BP 136/85 (BP Location: Left arm, Patient Position: Sitting) Temp 36.7 ??C (98.1 ??F) (Oral) Ht 175.3 cm (5' 9 ) Wt 114.8 kg (253 lb) BMI 37.36 kg/m?? Denies headache, dizziness, chest pain, palpitations, shortness of breath, edema, orthopnea, PND. Assessment & Plan (08/07/2019 1:46 PM GRAIN FARMER): Vitals BP 122/84 (BP Location: Right arm, Patient Position: Sitting) Pulse 78 Temp 36.7 ??C (98 ??F) (Oral) Ht 175.3 cm (5' 9 ) Wt 119.7 kg (264 lb) BMI 38.99 kg/m?? Denies headache, dizziness, chest pain, palpitations, shortness of breath, edema, orthopnea, PND. Assessment & Plan (02/07/2019 12:28 PM CDT): Vitals BP 116/78 (BP Location: Right arm, Patient Position: Sitting) Pulse 72 Temp 36.3 ??C (97.4 ??F) (Oral) Resp 18 Ht 175.3 cm (5' 9.02 ) Wt 118.8 kg (262 lb) BMI 38.67 kg/m?? Assessment & Plan (11/08/2018 9:55 PM GRAIN FARMER): Vitals BP 130/78 (BP Location: Right arm, Patient Position: Sitting) Pulse 88 Ht 175.3 cm (5' 9.02 ) Wt 119.2 kg (262 lb 12.8 oz) BMI 38.79 kg/m?? Denies headache, dizziness, chest pain, palpitations, shortness of breath, edema, orthopnea, PND. Assessment & Plan (05/23/2018 10:21 PM CDT): Elevated pressure past few visits noted. Denies angina, dyspnea, orthopnea, PND, palpitations, tachycardia, pre-syncope, syncope, or claudication. Will start lisinopril. Please follow up with your PCP. Keep blood pressure diary. Target goal is under 130/80. You can lower your blood pressure with the following lifestyle changes: Eat a well-balanced, low-salt diet Exercise regularly Losing weight if you are overweight or obese Ulnar neuropathy of both upper extremities 10/04 Assessment & Plan (08/14/2024 3:51 PM GRAIN FARMER): Symptoms remained stable. We will monitor for now. Assessment & Plan (04/15/2023 1:58 PM CDT): The patient notes intermittent flare-ups of her symptoms, often positional with a slight progression more recently. Jaskaran has offered her some relief. She does see a chiropractor on a regular basis. Denies that she is address this with them. Plan to bring up with them their next visit. Assessment & Plan (12/04/2021 10:23 AM CDT): The patient notes intermittent flare-ups of her symptoms, often positional. She does note that the gabapentin has been helping with this discomfort as well when flare ups occur. We will continue with current management. Periodic limb movement disorder 10/04/2017 Assessment & Plan (05/29/2021 12:51 PM CDT): Currently managed on pramipexole 1.5mg nightly. Assessment & Plan (03/24/2021 9:23 AM CDT): Currently managed on pramipexole 1.5mg nightly. Assessment & Plan (09/09/2020 1:57 PM GRAIN FARMER): Currently managed on pramipexole 1.5mg nightly. Continue to monitor the left hand twitching with intermittent associated weakness of the left hand. Assessment & Plan (11/08/2018 9:56 PM GRAIN FARMER): Pramipexole increased per Neurology. Assessment & Plan (05/23/2018 10:25 PM CDT): Mirapex has helped with movement disorder. Obstructive sleep apnea on CPAP 09/28/2017 Assessment & Plan (05/21/2020 11:15 PM CDT): Stable Vitamin D deficiency 03/30/2017 Assessment & Plan (05/21/2020 11:16 PM CDT): Update lab as per orders. Assessment & Plan (08/07/2019 1:52 PM GRAIN FARMER): Continue D replacement. Assessment & Plan (02/07/2019 12:29 PM CDT): Images from the original note were not included. Assessment & Plan (11/08/2018 9:57 PM GRAIN FARMER): Update lab as per orders. Abnormal antibody titer 03/30/2017 Overview (03/30/2017): Anti smooth muscle antibody positive. LFT normal. Vitamin B12 deficiency 03/30/2017 Assessment & Plan (05/21/2020 11:15 PM CDT): Lab Results Component Value Date [id number] [id number] 02/15/2020 Assessment & Plan (08/07/2019 1:51 PM GRAIN FARMER): Continue B12 replacement. Fibromyalgia 03/30/2017 Assessment & Plan (11/26/2020 11:59 AM GRAIN FARMER): Chronic, stable and well-controlled on duloxetine from you psychiatrist. Encourage improved sleep patterns, regular exercise and a heart healthy diet. Assessment & Plan (05/21/2020 11:15 PM CDT): Continue duloxetine Assessment & Plan (02/08/2020 10:43 AM CDT): Continue duloxetine 60 mg daily. Assessment & Plan (08/07/2019 1:46 PM GRAIN FARMER): Continue duloxetine 60 mg daily. Assessment & Plan (02/07/2019 12:28 PM CDT): Continue duloxetine 60 mg daily. Assessment & Plan (11/08/2018 9:55 PM GRAIN FARMER): Continue gabapentin and duloxetine. Assessment & Plan (05/23/2018 10:26 PM CDT): Well controlled on present medication regimen. Continue same. Assessment & Plan (09/28/2017 10:54 AM GRAIN FARMER): Well controlled on current med regimen. Continue same. Undifferentiated connective tissue disease 03/29 Overview (05/21/2020): Images from the original note were not included. Extremity Sonography December 12, 2013, 14:36??at??[facility] Final View Details Rosy LOMBARDO PA HO *FINAL REPORT* The radiology attending physician has personally reviewed this study, and has reviewed and/or edited this written report and agrees with it. ACC# Date Time Exam [id number] Dec 12, 2013 14:36:00 [id number] Extremity Sono Complete L [id number] Dec 12, 2013 14:36:00 [id number] Extremity Sono Complete R EXAMINATION: BILATERAL COMPLETE EXTREMITY SONOGRAM HISTORY: 38-year-old female with history of rheumatoid arthritis and bilateral hand pain. FINDINGS RIGHT HAND/WRIST : Scans of the wrist, hand, and fingers show no evidence of significant synovitis involving the carpal joints, metacarpal phalangeal joints, or proximal interphalangeal joints. There are no joint effusions. There are no bony erosions visualized. Flexor and extensor tendons appear normal without evidence of tendon sheath effusion or tenosynovitis. There is a cyst at the distal right wrist on the ulnar side, measuring 1.3 x 1.3 x 0.6 cm. It contains no internal vascularity. FINDINGS LEFT HAND/WRIST: Scans of the wrist, hand, and fingers show no evidence of significant synovitis involving the carpal joints, metacarpal phalangeal joints, or proximal interphalangeal joints. There are no joint effusions. There are no bony erosions. Flexor and extensor tendons appear normal without evidence of tendon sheath effusion or tenosynovitis. Immediately distal to the scapholunate joint, there is a 1 x 2 x 4 mm cyst with surrounding soft tissue thickening. There is no increased vascularity. IMPRESSION: 1. Sonographic findings consistent with bilateral ganglion cysts as described above, otherwise normal examination of the hand and wrists without evidence of erosions or synovitis. Requested By: Moses Rahman M.D. Dictated By: BUFFY THOMAS on Dec 12 2013 3:38P This document has been electronically signed by: RANDA AGUIRRE M.D. on Dec 12 2013 4:31P Assessment & Plan (03/08/2024 12:42 PM CDT): Stable on HCQ, continue same. Assessment & Plan (12/03/2021 2:05 PM CDT): Chronic, stable and well-controlled on HCQ. Continue yearly eye exams and have reports sent to this office. Follow up here with Dr. Lovett in 6 months. Lab Results Component Value Date ABDIRIZAK POSITIVE (A) 01/17/2021 ABDIRIZAK 1:40 (H) 01/17/2021 Assessment & Plan (11/26/2020 11:58 AM GRAIN FARMER): Chronic, stable and well-controlled on plaqueinil. Continue yearly eye exams and have reports sent to this office. Follow up here with Dr. Lovett in 6 months. Assessment & Plan (05/21/2020 11:10 PM CDT): Images from the original note were not included. 45 year old female with history of inflammatory arthritis in the setting of intermittently weakly positive ABDIRIZAK and positive smooth muscle antibody. She was treated by Dr. Moses Rahman as probable Rheumatoid Arthritis for many years with classic DMARDs (leflunomide and sulfasalazine) as well as Enbrel and Humira. She had documented fatty liver on imaging studies. I began to see her in [address] Rahman's prison. I was unable to confirm a diagnosis of ongoing inflammatory arthritis and TNF-I as well as DMARD drugs were discontinued. A hand/wrist ultrasound showed no evidence synovitis or erosions. Because of her positive smooth muscle antibody test a liver biopsy was considered to exclude autoimmune hepatitis but with normalization of her liver enzymes biopsy was deferred after consultation with Dr. Frankie Rush (GI, hepatology). She was seen at [facility] where a diagnosis of autoimmune disease without more specific label was provided. She returned to our care at which time (2015) hydroxychloroquine was initiated. She has since that time been maintained on hydroxychloroquine (200 mg twice daily). Ophthalmology monitoring for hydroxychloroquine drug safety up to date. She has remained stable on this medication. Her liver enzymes have remained normal. She has had minimal inflammatory joint symptoms. Patient denies fever, rash, aphthous ulcers, dry eyes, dry mouth, hair loss, dysphagia, pleurisy, shortness of breath, nausea, vomiting, diarrhea, dysuria, hematuria, seizures, syncope, arthritis, Raynaud's. Her most recent serologies have been unremarkable: And routine labs have been stable: Lab Results Component Value Date WBC 4.9 02/23/2020 HGB 13.5 02/23/2020 HCT 39.8 02/23/2020 MCV 95.4 02/23/2020 LABPLAT 227 02/23/2020 Lab Results Component Value Date GLUCOSE 103 (H) 02/23/2020 CALCIUM 9.3 02/23/2020 SODIUM 138 02/23/2020 POTASSIUM 3.9 02/23/2020 CO2 21 02/23/2020 CHLORIDE 104 02/23/2020 BUNSER 7 02/23/2020 CREATININE 0.71 02/23/2020 Lab Results Component Value Date ALT 20 02/23/2020 AST 17 02/23/2020 ALKPHOS 106 02/23/2020 BILITOT 0.4 02/23/2020 Lab Results Component Value Date SEDRATE 2 02/23/2020 Lab Results Component Value Date CRP 1.0 02/23/2020 Lab Results Component Value Date ABDIRIZAK NEGATIVE 02/15/2020 RF <14 11/08/2018 SEDRATE 2 02/23/2020 Lab Results Component Value Date ABDIRIZAK NEGATIVE 02/15/2020 Her hepatitis serologies have been documented negative in the past. She is satisfied with current clinical course and will continue same. Patient denies fever, rash, aphthous ulcers, dry eyes, dry mouth, hair loss, dysphagia, pleurisy, shortness of breath, nausea, vomiting, diarrhea, dysuria, hematuria, seizures, syncope, Raynaud's. Patient is aware of my planned prison in mid-May and our intention to transition her care to one of the other Rheumatologists at [facility]. Assessment & Plan (02/08/2020 10:42 AM CDT): Undifferentiated connective tissue disease clinically stable on hydroxychloroquine regimen. She has had previous management for possible rheumatoid arthritis by Dr. Moses Rahman prior to his prison. She has had positive ABDIRIZAK (generally low titer) and smooth muscle antibody (1:160) with mild transaminasemia (long since resolved). She feels well currently. Patient denies fever, rash, aphthous ulcers, dry eyes, dry mouth, hair loss, dysphagia, pleurisy, shortness of breath, nausea, vomiting, diarrhea, dysuria, hematuria, seizures, syncope, arthritis, Raynaud's. She will schedule updated eye exam as soon as Covid-19 restrictions allow. Update lab as per orders. Continue same. . Assessment & Plan (08/07/2019 1:52 PM GRAIN FARMER): Undifferentiated connective tissue disease well controlled on hydroxychloroquine regimen. Tolerates same. Ophthalmology monitoring for drug safety up to date. Patient denies fever, rash, aphthous ulcers, dry eyes, dry mouth, hair loss, dysphagia, pleurisy, shortness of breath, nausea, vomiting, diarrhea, dysuria, hematuria, seizures, syncope, Raynaud's. Occasional arthralgias and swelling hands, generally self-limited. Update lab as per orders. Assessment & Plan (02/07/2019 12:27 PM CDT): Undifferentiated connective tissue disease, clinically table on current hydroxychloroquine regimen. Patient denies fever, rash, aphthous ulcers, dry eyes, dry mouth, hair loss, dysphagia, pleurisy, shortness of breath, nausea, vomiting, diarrhea, dysuria, hematuria, seizures, syncope, Raynaud's. Will update lab as per orders. Continue current hydroxychloroquine regimen. ?? Assessment & Plan (11/08/2018 9:54 PM GRAIN FARMER): Undifferentiated connective tissue disease, clinically table on current hydroxychloroquine regimen. She reports late 07/2018 onset pain L Ankle with unremarkable x-rays per Dr. Paz. She recalls no injury; occasionally wears a splint for support. Patient denies fever, rash, aphthous ulcers, dry eyes, dry mouth, hair loss, dysphagia, pleurisy, shortness of breath, nausea, vomiting, diarrhea, dysuria, hematuria, seizures, syncope, Raynaud's. Will update lab as per orders. Continue current hydroxychloroquine regimen. Assessment & Plan (05/23/2018 10:24 PM CDT): She is having increase pain and stiffness of the hands. Takes Vicoprofen very sparingly. Gabapentin was not effective. With your documented elevated blood pressure would avoid nsaids. Take tylenol instead. Ozawkie prescribed as alternative by Dr. Martinez. Assessment & Plan (09/28/2017 10:54 AM GRAIN FARMER): Well controlled on current med regimen. Continue same. Update lab as per orders. Long-term use of hydroxychloroquine 03/29/2017 Assessment & Plan (03/08/2024 12:43 PM CDT): Screening Ophthalmological Evaluation Request Medication: Hydroxychloroquine (Plaquenil) Patient: Please obtain the following eye exam with your eye doctor before starting hydroxychloroquine (Plaquenil). Then, continue to obtain yearly eye exams (or as directed by your eye doctor) while taking Plaquenil. Provider: Please perform the following exams on an annual basis: Visual Acuity Visual Field testing Slit Lamp evaluation Color Vision Assessment OCT Assessment & Plan (02/07/2019 12:28 PM CDT): Patient on immunosuppressive medications requiring periodic lab monitoring for drug safety. Update lab as per orders written. Ophthalmology monitoring up to date. Assessment & Plan (11/08/2018 9:55 PM GRAIN FARMER): Patient on immunosuppressive medications requiring periodic lab monitoring for drug safety. Update lab as per orders written. Acquired hypothyroidism 10/26/2012 Overview (12/24/2016): Hypothyroidism Assessment & Plan (05/21/2020 11:15 PM CDT): Lab Results Component Value Date TSH 2.35 08/07/2019 Assessment & Plan (02/08/2020 10:44 AM CDT): Lab Results Component Value Date TSH 2.35 08/07/2019 Assessment & Plan (08/07/2019 1:48 PM GRAIN FARMER): Monitored by Dr. Paz. Update lab as per orders. Assessment & Plan (02/07/2019 12:29 PM CDT): Lab Results Component Value Date TSH 3.030 03/30/2017 Assessment & Plan (11/08/2018 9:56 PM GRAIN FARMER): Management per Dr. Paz. Assessment & Plan (03/30/2017 9:49 AM CDT): Update lab as per orders. Resolved Problems Problem Noted Date Diagnosed Date Resolved Date Class 2 severe obesity with serious comorbidity and body mass index (BMI) of 38.0 to 38.9 in adult 05/21/2022 12/07/2022 Numbness and tingling of both feet 11/08/2018 11/08/2018 Numbness and tingling in left arm 11/29/2017 11/08/2018 Neck pain 10/04/2017 11/08/2018 Class 2 obesity due to exces s calories without serious comorbidity with body mass index (BMI) of 38.0 to 38.9 in adult 03/30/2017 Assessment & Plan (06/24/2021 5:40 PM CDT): This is the major contributor to the patient issues. Unfortunately she also takes gabapentin which can increase her weight meds. We discussed options for weight loss. She will need to participate in aggressive weight loss program for. She is working with her special diet and and possibly seek help of a spinner continuous. Assessment & Plan (08/07/2019 1:46 PM GRAIN FARMER): An optimal BMI (body mass index) is between 20 and 25. Encourage weight loss. Each pound of weight lost unloads 3-4 pounds per square inch pressure from weight bearing joints. Diet and exercise are the keys to weight management. Assessment & Plan (02/07/2019 12:27 PM CDT): An optimal BMI (body mass index) is between 20 and 25. Encourage weight loss. Each pound of weight lost unloads 3-4 pounds per square inch pressure from weight bearing joints. Diet and exercise are the keys to weight management. Assessment & Plan (02/05/2019 5:03 PM CDT): Will start 1200 calorie diet. Will follow up her weight closely. Assessment & Plan (11/08/2018 9:54 PM GRAIN FARMER): An optimal BMI (body mass index) is between 20 and 25. Encourage weight loss. Each pound of weight lost unloads 3-4 pounds per square inch pressure from weight bearing joints. Diet and exercise are the keys to weight management. Assessment & Plan (09/28/2017 10:53 AM GRAIN FARMER): An optimal BMI (body mass index) is between 20 and 25. Encourage weight loss. Each pound of weight lost unloads 3-4 pounds per square inch pressure from weight bearing joints. Diet and exercise are the keys to weight management. Assessment & Plan (03/30/2017 9:48 AM CDT): An optimal body mass index is between 20 and 25. Encourage weight loss. Each pound of weight lost unloads 3-4 pounds per square inch pressure from weight bearing joints. Diet and exercise are the keys to weight management. Disorder of joint 07/19/2016 03/29/2017 Overview (12/24/2016): Arthropathy Generalized arthritis 07/19/20162016 Overview (12/24/2016): Generalized arthritis Inflammatory arthritis 02/02/201411/08 Overview (12/23/2016): Rheumatoid arthritis Arthritis 10/26/2012 03/29/2017 Overview (12/23/2016): Inflammatory arthritis Encounters Date Type Department Care Team Description 10/16/2024 Telephone [facility] Rheumatology at [facility] [address] [place] [address] Carlota Hein NP Pain/ Flare 09/04/2024 Orders Only [facility] [address] [place] [address] Ana Rios MD Restless leg syndrome (Primary Dx) 08/27/2024 9:10 AM GRAIN FARMER Office Visit [facility] Orthopaedic Surgery [address] [place] [address] [address] [place] [address] [place] [address] Dereck Zapata MD Posterior tibial tendinitis of left leg (Primary Dx) 08/14/2024 3:30 PM GRAIN FARMER Office Visit [facility] [address] [place] [phone] Ana Rios MD Migraine without aura and without status migrainosus, not intractable (Primary Dx); Restless leg syndrome; Ulnar neuropathy of both upper extremities 08/14/2024 12:58 PM GRAIN FARMER - 08/14/2024 11:59 PM GRAIN FARMER Hospital Encounter [facility] - Imaging [address] [place] [phone] Thyroid nodule Discharge Disposition: Discharge to home or self care 08/14/2024 Telephone [facility] Endocrinology at [place] [id number], [place] [phone] Crys Rodriguez MA 08/07/2024 8:18 AM GRAIN FARMER - 08/07/2024 11:59 PM GRAIN FARMER Hospital Encounter [facility] Breast Imaging [facility] ([facility]) [address] [place] [phone] Mass of left breast, unspecified quadrant; Other abnormal and inconclusive findings on diagnostic imaging of breast Discharge Disposition: Discharge to home or self care 07/31/2024 Telephone [facility] Endocrinology at [facility] [address], [place] [phone] Maura Dawson LPN prior Thyroid US order from Last 3 Months Immunizations Name Administration Dates Next Due Hep A / Hep B 03/04/2016,07/28/2015 Influenza, Quadrivalent, Spl it, Intramuscular 06/07/2017 Influenza, Quadrivalent, Spl it, Preservative Free, Intradermal 05/20/2016 Influenza, Quadrivalent, Spl it, Preservative Free, Intramuscular 07/11/2023,05/27/2020,07/08/2019 Influenza, Trivalent, IM (MDV) 06/26/2012 Influenza, Trivalent, Preser vative Free, Intramuscular 07/04/2024 Influenza, Trivalent, Split, Preservative Free, Intradermal 06/02/2015,05/20/2014 Moderna Sars-cov-2 Monovalen t Booster Vaccination .25 Ml dose (12+ YRS) 07/11/2023 Surgical History Surgery Date Site/Laterality Comments DILATION AND CURETTAGE OF UTERUS several HYSTERECTOMY 09/19/2002 - 09/18/2003 SECTION 12/18/2002 - 01/16/2003 ANKLE SURGERY 10/16/2019 Left OTHER SURGICAL HISTORY 05/05/2020 LEFT STEROID INJECTION IN ANKLE BY DR DIOP ANKLE SURGERY 08/13/2020 Left 2nd surgery- tendon FLUORO GUIDED INJECTION ANKLE LEFT 06/17/2022 Left Medical History Medical History Date Comments Tendonitis Left ankle Anxiety well controlled with meds Peripheral neuropathy occasional ly Obesity Rheumatoid arthritis (HCC) Fibromyalgia Irritable bowel syndrome well co ntrolled with meds Hypothyroidism well controlled with meds Depression well controlled with meds Chronic pain all over Ankle pain Hypertension Sleep apnea Autoimmune disease (CMS/HCC) (HCC) Family History Medical History Relation Name Comments Alcohol abuse Father Rafael Gomes Hyperlipidemia Father Rafael Gomes Hypertension Father Rafael Gomes Hypertension; Thyroid disease Father Rafael Gomes Diabetes Maternal Grandfather Jose Angel Marquez Cancer Maternal Grandmother Saskiacarlos Marquez Depression Mother Mara Gomes Hyperlipidemia Mother Mara Gomes Hypertension Mother Mara Gomes Hypertension; Thyroid disease Mother Mara Gomes Cancer Paternal Grandmother Heena Gomes Relation Name Status Comments Father Rafael Gomes Alive Maternal Grandfather Jose Angel Marquez Maternal Grandmother [place]arlos Marquez Mother Mara Gomes Alive Paternal Grandmother Heena Gomes Social History Tobacco Use Types Packs/Day Years Used Date Smoking Tobacco: Never Smokeless Tobacco: Never Tobacco Cessation:Counseling Given: Not Answered Alcohol Use Standard Drinks/Week Comments No 0 [...] on file Legal Sex Female 11:38 AM GRAIN FARMER Gender Identity Not on file Sexual Orientation Straight 03/14/2020 4: 51 PM CDT Obstetrics History Last Filed Vital Signs Vital Sign Reading Time Taken Comments Blood Pressure 118/74 08/14/2024 3:14 PM GRAIN FARMER Pulse 89 08/14/2024 3:14 PM GRAIN FARMER Temperature 36.8 ??C (98.3 ??F) 07/04/2024 1 0:52 AM CDT Respiratory Rate 16 03/08/2024 2:01 PM CDT Oxygen Saturation 95% 08/14/2024 3:14 PM GRAIN FARMER Inhaled Oxygen Concentration - - Weight 117.3 kg (258 lb 9.6 oz) 08/14/2024 3:14 PM GRAIN FARMER Height 175.3 cm (5' 9 ) 08/14/2024 3:14 PM GRAIN FARMER Body Mass Index 38.19 08/14/2024 3:14 PM GRAIN FARMER Plan of Treatment Upcoming Encounters Date Type Department Care Team (Late st Contact Info) Description 01/16/2025 10:40 AM CDT Hospital Encounter [address] [address] Yesy Jorge MD [address] [place] [address] DR GUILLEN [address] [place] [phone] 01/16/2025 10:40 AM CDT - 01/16/2025 11:10 AM CDT Surgery [address] [address] Yesy Jorge MD [address] [place] [address] DR GUILLEN [address] [place] [phone] COLONOSCOPY Scheduled Procedures Name Priority Associated Diagnoses Date/Ti me COLONOSCOPY Screen for colon cancer Family history of colon cancer 01/16/2025 10:40 AM CDT Health Maintenance Due Date Last Done Comments Pneumococcal vaccine <65 (1 of 2 - PCV) 1983 DTaP/Tdap/Td Vaccine (1 - Tdap) 1988 Regular Well Visit/Exam 18-64 1995 Zoster Vaccine (1 of 2) 1996 Colon Cancer Screening-Colonoscopy 10/02/20232013, 05/17/2011 Depression Screening 12/08/2023 12/07/2022, 06/11/20 Breast Cancer Screening-Mammogram 01/01/2025 024 Hepatitis C Screening Completed 03/21/2015 Influenza Vaccine Completed 07/04/2024, , 05/27/2020, Additional history exists Goals Goal Patient Goal Type Associated Problems Recent Progress Patient-Stated? Author CCM Chronic Pain Care Plan Chronic Care Management On track(2019 1:14 PM GRAIN FARMER) No Ghislaine Cox, RN Note: Problem: Chronic Pain Goals: 1. Minimize further functional decline 2. Maximize quality of life 3. Control pain Strategies: - Activity/exercise program recommendation - Conservative stepwise pain medicine strategy with multi-disciplinary approach - Recommend healthy lifestyle strategies and compensatory methods as needed Procedures Procedure Name Priority Date/Time Associated Diagnosis Comments US THYROID Schedule Routine, Read Routine (OP Routine) 08/14/2024 1:22 PM GRAIN FARMER Thyroid nodule US BREAST LEFT LIMITED Schedule Routine, Read Routine (OP Routine) 08/07/2024 9:35 AM GRAIN FARMER Mass of left breast, unspecified quadrant Other abnormal and inconclusive findings on diagnostic imaging of breast SCREENING MAMMOGRAM BILATERAL W KORY Schedule Routine, Read Routine (OP Routine) 01/02/2024 2:08 PM CDT Screening mammogram, encounter for SERUM HEPATITIS PANEL Routine 03/21/2015 2:39 PM CDT COLONOSCOPY 10/02/2013 12:00 AM GRAIN FARMER from Last 3 Months or Most Recently Relevant to Health Maintenance Results * US Thyroid (08/14/2024 1:22 PM GRAIN FARMER) Anatomical Region Laterality Modality Head and Neck N/A Ultrasound 08/14/2024 1:43 PM GRAIN FARMER Impressions 08/14/2024 1:43 PM GRAIN FARMER Stable right thyroid nodule, previously biopsied. Electronically signed by: Luis Paulino M.D. Narrative 08/14/2024 1:43 PM GRAIN FARMER Thyroid sonogram HISTORY:Thyroid nodule. Technique: Ultrasound examination of the thyroid and adjacent soft tissues was performed using a high-resolution real-time high-resolution small parts scanner. FINDINGS Thyroid size: The right thyroid lobe measures 3.6 x 2.2 x 1.9 cm. The left thyroid lobe measures 4.1 x 1 x 1.1 cm. Comparison study most recent 04/12/2023. ??In the right mid thyroid is a 22 mm solid mass which is largely isoechoic and is not taller than wide. ??This mass is unchanged in size from 04/12/2023 and appears to been biopsied previously. ??No other significant nodules are detected. Procedure Note Luis Paulino MD - 08/14/2024 Thyroid sonogram HISTORY:Thyroid nodule. Technique: Ultrasound examination of the thyroid and adjacent soft tissues was performed using a high-resolution real-time high-resolution small parts scanner. FINDINGS Thyroid size: The right thyroid lobe measures 3.6 x 2.2 x 1.9 cm. The left thyroid lobe measures 4.1 x 1 x 1.1 cm. Comparison study most recent 04/12/2023. In the right mid thyroid is a 22 mm solid mass which is largely isoechoic and is not taller than wide. This mass is unchanged in size from 04/12/2023 and appears to been biopsied previously. No other significant nodules are detected. IMPRESSION: Stable right thyroid nodule, previously biopsied. Electronically signed by: Luis Paulino M.D. us Ermias Muñiz MD IMG US PROCEDURES Final Resu lt * US Breast Left Limited (08/07/2024 9:35 AM GRAIN FARMER) Anatomical Region Laterality Modality Breast Left Ultrasound 08/07/2024 9:58 AM GRAIN FARMER Impressions 08/07/2024 1:19 PM GRAIN FARMER 2 masses in the upper outer quadrant of the left breast likely represent a benign cluster of microcysts and are unchanged. Recommend continued follow-up with diagnostic mammogram and ultrasound in 6 months. OVERALL FINAL ASSESSMENT: BI-RADS Category 3: Probably Benign. RECOMMENDATION: Recommend follow-up diagnostic breast mammogram and ultrasound in 6 months. Dictated by: Joshua Brown MD The radiology attending physician has personally reviewed this study, and had reviewed and/or edited this written report and agrees with it. Electronically signed by: Savanna Hamm M.D. Narrative 08/07/2024 1:19 PM GRAIN FARMER EXAMINATION: LEFT BREAST ULTRASOUND HISTORY: 49-year-old female undergoing six-month follow-up from abnormality detected on screening mammogram dated 12/23/2023 with subsequent ultrasound on 01/11/2024 demonstrating 2 benign-appearing masses, likely representing clustered microcysts. COMPARISON: Multiple prior mammographic studies dating back to 08/29/2017 TECHNIQUE: Directed ultrasound evaluation of the LEFT breast was performed. ULTRASOUND FINDINGS: No significant interval change in size or appearance of two masses in the upper outer left breast as described below. * ??2:00, 8 cm from the nipple: 1.0 x ??0.8 x 0.3 cm oval, circumscribed, parallel mass with internal septations likely representing benign cluster of microcysts is unchanged. ??No internal vascularity. * ??2:30, 6 cm from the nipple: 0.6 x 0.2 x 0.4 cm hypoechoic, circumscribed mass with internal septations is unchanged. ??No internal vascularity. Procedure Note Savanna Hamm MD - 08/07/2024 EXAMINATION: LEFT BREAST ULTRASOUND HISTORY: 49-year-old female undergoing six-month follow-up from abnormality detected on screening mammogram dated 12/23/2023 with subsequent ultrasound on 01/11/2024 demonstrating 2 benign-appearing masses, likely representing clustered microcysts. COMPARISON: Multiple prior mammographic studies dating back to 08/29/2017 TECHNIQUE: Directed ultrasound evaluation of the LEFT breast was performed. ULTRASOUND FINDINGS: No significant interval change in size or appearance of two masses in the upper outer left breast as described below. * 2:00, 8 cm from the nipple: 1.0 x 0.8 x 0.3 cm oval, circumscribed, parallel mass with internal septations likely representing benign cluster of microcysts is unchanged. No internal vascularity. * 2:30, 6 cm from the nipple: 0.6 x 0.2 x 0.4 cm hypoechoic, circumscribed mass with internal septations is unchanged. No internal vascularity. IMPRESSION: 2 masses in the upper outer quadrant of the left breast likely represent a benign cluster of microcysts and are unchanged. Recommend continued follow-up with diagnostic mammogram and ultrasound in 6 months. OVERALL FINAL ASSESSMENT: BI-RADS Category 3: Probably Benign. RECOMMENDATION: Recommend follow-up diagnostic breast mammogram and ultrasound in 6 months. Dictated by: Joshua Brown MD The radiology attending physician has personally reviewed this study, and had reviewed and/or edited this written report and agrees with it. Electronically signed by: Savanna Hamm M.D. us Alvina BAER IMG MAMMO PROCEDURES Final Result * Screening Mammogram Bilateral W Kory (01/02/2024 2:08 PM CDT) Anatomical Region Laterality Modality Breast Bilateral Mammography Narrative 01/04/2024 3:10 PM CDT Mammogram Technique: Bilateral Digital Breast Tomosynthesis, Bilateral C-view 2D Screening mammogram. ??Views obtained: ??bilateral craniocaudal and bilateral mediolateral oblique. ??Computer Aided Detection was performed. Mammogram Findings: The present examination has been compared to prior imaging studies performed at [facility]. [facility] on 08/29/2017, 10/25/2018 and 06/10/2022. There are scattered areas of fibroglandular density. There is an oval mass in the upper outer quadrant of the left breast. There is no suspicious abnormality in the right breast. Impression: Mass in the left breast requires additional evaluation. An ultrasound exam is recommended at this time. OVERALL FINAL ASSESSMENT: BI-RADS CATEGORY 0: ??Incomplete: ??Need additional imaging evaluation. Procedure Note Carlota Aguiar MD - 01/04/2024 Mammogram Technique: Bilateral Digital Breast Tomosynthesis, Bilateral C-view 2D Screening mammogram. Views obtained: bilateral craniocaudal and bilateral mediolateral oblique. Computer Aided Detection was performed. Mammogram Findings: The present examination has been compared to prior imaging studies performed at [facility]. [facility] on 08/29/2017, 10/25/2018 and 06/10/2022. There are scattered areas of fibroglandular density. There is an oval mass in the upper outer quadrant of the left breast. There is no suspicious abnormality in the right breast. Impression: Mass in the left breast requires additional evaluation. An ultrasoundexam is recommended at this time. OVERALL FINAL ASSESSMENT: BI-RADS CATEGORY 0: Incomplete: Need additional imaging evaluation. 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 Procedure Note Provider, MD Ana - 10/02/2013 12:00 AM CST PROCEDURE REPORT Patient: SASKIA BECERRIL Account: [id number] Room No: : 1975 Patient Type: [facility] Attend.: Yesy Jorge M.D. Admit Date: 10/02/2013 Dict.: Yesy Jorge M.D. Disch. Date: 10/02/2013 NAME OF PROCEDURE: Colonoscopy with biopsy. INDICATION: Hematochezia, colitis. DATE OF PROCEDURE: 10/02/2013. PRIMARY CARE PHYSICIAN: Dr. Ky Gonzalez. BRIEF HISTORY AND PHYSICAL: The patient is a 38-year-old white femalewho presented for colonoscopy. Patient had a recent episode of hematocheziaand she went to the emergency room where she had CAT scan imaging whichshowed colitis in the left side of the colon. Her symptoms improved overall.The patient has a history of rheumatoid arthritis for which she takes Humiraand sulfasalazine. She has a grandmother with history of colon cancer. Colonoscopy is being done today for evaluation. PROCEDURE: Sedation was provided by Anesthesia Service. The procedureof colonoscopy including indications and possible complications ofbleeding, infection and perforation requiring surgery were discussed with thepatient and consent was obtained. Rectal examination prior to colonoscopy was unremarkable. The scope was introduced to the rectum and advanced to thececum which was identified by the ileocecal valve and appendiceal orifice.The quality of the colon preparation was excellent. The terminal ileum was intubated and appeared normal. The cecum,ascending colon, transverse colon, were all within normal. The random colon biopsywas performed. In the proximal part of the sigmoid colon there was alocalized area of erythema and edema which may represent localized healing colitis.No ulceration noted. Biopsy for histology from this area was performed. Themore distal part of the sigmoid colon and rectum appeared normal. The rectum appeared unremarkable. Retroflexion in the rectum showed small internal hemorrhoids. IMPRESSION: 1. Localized areas of edema and erythema in the sigmoid colon whichmay represent resolving colitis. 2. Small internal hemorrhoids. RECOMMENDATIONS: 1. Follow pathology report. 2. Avoid nonsteroidal medications if possible. 3. Healthy diet. Rosy Waters/shiv TD: 10/03/2013 10:06 CC: Ky Gonzalez M.D. Authenticated by Yesy Jorge MD On 10/10/2013 11:12:50 AM us Historical Provider ENDOSCOPY PROCEDURES Kristina salmon Result from Last 3 Months or Most Recently Relevant to Health Maintenance Insurance Orate NE Orate NE Orate NE Care Teams First Crusher Relationship Specialty Start Date End Date Srinath Paz MD [address] [facility] [address] [place] [address] PCP - General 12/17/16
--- OUTSIDE RECORDS SUMMARY | 2024-10-17 12:21 | XMS_ITS ---
Author Organization [facility] [employer] [facility] Address [facility] [address] [address] Care Team Providers Care Roller Inspector Name Role Phone Srinath Paz MD Primary Care Provider Maggie Leija Unavailable [phone] REASON FOR VISIT Appt on Nov 05. Social History Sex Assigned At : Social History Observation Description Sex Assigned At Female Encounters Encounter Location Date Provider Diagnosis [facility] [place] [address] [address] [facility] [address] [address] 09/17/2024 Maggie Dutton Plan Of Treatment Next Appt Details Provider Name:Bambi Marlow, 11/05/2024 01:00:00 PM, [facility], [address], [address], Provider Name:Maggie Dutton, 11/05/2024 02:15:00 PM, [facility] [address] [facility], [address], [address], Provider Name:Bambi Marlow, 11/19/2024 09:00:00 AM, [address] [place] [address] [address] [facility], [address], [address], Provider Name:Maggie Dutton, 11/19/2024 10:00:00 AM, [facility] [address] [facility] [address], [address], [address], Progress Notes * NATE BECERRIL LDOB:[birth year] (49 yo F)Acc No.[id number]:09/17/2024 Patient:NATE CM :1975???Age:49 Y???Sex:Female Address:[facility] [address] , [place], [address] * true * Date:? Generated for Josei shi/Seng/eTransmitting on:?10/17/2024 12:21 PM CUSTOMER SUPPORT SPECIALIST
--- OUTSIDE RECORDS SUMMARY | 2024-10-17 12:22 | XMS_ITS ---
Author Organization [facility] Address [address] [place] [address] [address] Care Team Providers Care Dewer Name Role Phone Srinath Paz MD Primary Care Provider Maggie Leija Unavailable [phone] REASON FOR VISIT RE:Appt. Social History Sex Assigned At : Social History Observation Description Sex Assigned At Female Encounters Encounter Location Date Provider Diagnosis [facility] [employer] [address] [address] 10/12/2024 Maggie Dutton Plan Of Treatment Next Appt Details Provider Name:Bambi Marlow, 11/05/2024 01:00:00 PM, [facility] [address] [facility], [address], [address], Provider Name:Maggie Dutton, 11/05/2024 02:15:00 PM, [facility] [address] [place] [address], [address], [address], Provider Name:Bambi Marlow, 11/19/2024 09:00:00 AM, [address] [place] [address], [address], Provider Name:Maggie Dutton, 11/19/2024 10:00:00 AM, [address] [place] [address], [address], [address], Progress Notes * NATE BECERRIL LDOB:[birth year] (49 yo F)Acc No.[id number]:10/12/2024 Patient:?NATE BECERRIL :1975???Age:49 Y???Sex:Female Address:[facility] [address], [place], [address] * true * Date:? 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
--- OUTSIDE RECORDS SUMMARY | 2024-10-17 12:22 | XMS_ITS | Encounter Summary ---
Author Organization [facility] Healthcare Address [address] [place] [address] Care Team Providers Care Senior Accounting Manager Name Role Phone Srinath Paz MD Primary Care Provider Reason for Visit * Diagnostic Imaging (Routine) - Pending Review Specialty Diagnoses / Procedures Referred By Contac jerald Referred To Contact Procedures Breast Imaging Screening Outside Reference Transcribed Order, Provider Referral ID Status Reason Start Date Expiration Date V isits Requested Visits Authorized [id number] Pending Review 12/29/2023 01/27/2025 1 1 Encounter Details Date Type Department Care Team (Late st Contact Info) Description 10/25/2018 Hospital Encounter [facility] [address] [place] [id number] Social History Tobacco Use Types Packs/Day Years [...] on file 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 Gender Identity Not on file Sexual Orientation [...] Description 01/16/2025 10:40 AM CDT Hospital Encounter [address] [address] Yesy Jorge MD [address] [facility] [address] [place] [address] 01/16/2025 10:40 AM CDT - 01/16/2025 11:10 AM CDT Surgery [address] [address] Yesy Jorge MD [address] [facility] [address] [place] [address] COLONOSCOPY Scheduled Procedures Name Priority Associated Diagnoses Date/Ti me COLONOSCOPY Screen for colon cancer Family history of colon cancer 01/16/2025 10:40 AM CDT documented as of this encounter Goals Goal Patient Goal Type Associated Problems Recent Progress Patient-Stated? Author CCM Chronic Pain Care Plan Chronic Care Management On track(2019 1:14 PM CORD TIRE BUILDER) No Ghislaine Cox RN Note: Problem: Chronic [...] BREAST IMAGING MG SCREENING OUTSIDE REFERENCE Routine 10/25/2018 12:00 AM CORD TIRE BUILDER documented in this encounter Results * Breast Imaging Screening Outside Reference (10/25/2018 12:00 AM CORD TIRE BUILDER) Impressions [facility]_M[facility]MO[facility] - 12/29/2023 2:24 PM CDT These images are for Reference purposes only and have not been reviewed by [facility] Radiology. ??There will be no report generated by a [facility] Radiologist. Narrative [facility]MAMMO[facility] - 12/29/2023 2:24 PM CDT EXAMINATION: ??Images For Reference Purposes Only us Provider Transcribed Order IMG MAMMO PROCEDURES Final Result [facility] documented in this encounter Visit Diagnoses Not on filedocumented in this encounter Care Teams Senior Accounting Manager Relationship Specialty Start Date End Date Srinath Paz MD [address] [place] [address] PCP - General 12/17/16 documented as of this encounter
[2024-10-17] MEDS: SODIUM CHLORIDE 0.9% IV 1,000 ML 999 ML IV CONT (15:26)
[2024-10-17] MEDS: HYDROcodone/acetaminophen (*CRX) 5-325 MG TABLET 1 TAB PO (15:27)
[2024-10-17 15:28] VITALS: BP 107/57; PULSE 96; RESP 18; O2SAT 100
[2024-10-17 16:25] VITALS: BP 109/57; PULSE 88; RESP 20; O2SAT 97
[2024-10-17 16:33] VITALS: BP 109/57; PULSE 88; RESP 20; O2SAT 97
== END 2024-10-17 16:35 | disposition home or self-care (01) ==
PROVIDERS: Emergency Provider Emergency Medicine; PCP Family Medicine
DX: M94.0 Chondrocostal junction syndrome [Tietze] (principal); K44.9 Diaphragmatic hernia without obstruction or gangrene; Z79.899 Other long term (current) drug therapy
CPT/HCPCS: 36415; 71046; 71275; 80053; 83690; 84484; 85025; 85610; 85730; 93005; 96361; 96374; 99284; A9270; J1171; J7030; Q9967

== ENCOUNTER 2024-10-24 17:01 | Outpatient (CLI) | payer BC, SELFPAY ==
--- OUTSIDE RECORDS SUMMARY | 2024-10-24 17:04 | XMS_ITS | Referral Summary ---
Author Organization [facility] Address [address] [place] [address] Care Team Providers Care Monument Mason Name Role Phone Srinath Paz MD Primary Care Provider Encounters Date Type Department Care Team Description 10/22/2024 Telephone [facility] Rheumatology at [place] [address] [facility] [address], [place] [phone] Mariana Lovett MD Emergency room visit notes 10/18/2024 Telephone [facility] [address] [place] [address] [place] [phone] Rebecca Carl MA 10/16/2024 Telephone [facility] Rheumatology at [address], [place] [address] Carlota Hein NP Pain/ Flare 09/04/2024 Orders Only [facility] [address] [place] [phone] Ana Rios MD Restless leg syndrome (Primary Dx) 08/27/2024 9:10 AM SENIOR QUALITY METHODS SPECIALIST Office Visit [facility] Orthopaedic Surgery [address] [place] [address] 6th [place] [address] [place] [phone] Dereck Zapata MD Posterior tibial tendinitis of left leg (Primary Dx) 08/14/2024 Telephone [facility] Endocrinology at [facility] [address] [facility] [address], [place] [address] Crys Rodriguez MA 08/14/2024 12:58 PM SENIOR QUALITY METHODS SPECIALIST - 08/14/2024 11:59 PM SENIOR QUALITY METHODS SPECIALIST Hospital Encounter [facility] - Imaging [address] [place] [address] Thyroid nodule Discharge Disposition: Discharge to home or self care 08/14/2024 3:30 PM SENIOR QUALITY METHODS SPECIALIST Office Visit [facility] [address] [facility] [address] [place] [address] Ana Rios MD Migraine without aura and without status migrainosus, not intractable (Primary Dx); Restless leg syndrome; Ulnar neuropathy of both upper extremities 08/07/2024 8:18 AM SENIOR QUALITY METHODS SPECIALIST - 08/07/2024 11:59 PM SENIOR QUALITY METHODS SPECIALIST Hospital Encounter [facility] Advanced Medicine Breast Imaging [facility] ([facility]) [address] [place] [address] Mass of left breast, unspecified quadrant; Other abnormal and inconclusive findings on diagnostic imaging of breast Discharge Disposition: Discharge to home or self care 07/31/2024 Telephone [facility] Endocrinology at [facility] [address] [facility] [address], [place] [phone] Maura Dawson LPN prior Thyroid US order from Last 3 Months Allergies Active Allergy Reactions Criticality Noted Date [...] package 1 packet 10/16/19 25 025 Active Problems Problem Noted Date Diagnosed Date [...] reviewed. Assessment & Plan (09/09/2020 1:54 PM SENIOR QUALITY METHODS SPECIALIST): She currently feels as if her neuropathy symptoms are stable. She continues to take gabapentin nightly with adequate relief and denies any significant side effects. Peroneal tendonitis of left lower extremity 05/2020 Overview (07/28/2020): Added automatically from request for surgery [id number] Neuropathic pain 06/25/2020 Left ankle pain 06/17/2020 Tear of peroneal tendon 06/17/2020 Complex regional pain syndro me type 2 of left lower extremity 06/17/2020 Advice given about 2019 novel coronavirus by tel loreeone 02/08/2020 Assessment & Plan (05/21/2020 11:11 PM [...] It is important that you continue to [id number] other than for essential outings. Feel free [...] is important that you adhere to the [id number] orders for the time being. Feel free to reach out to us if you have additional questions after you review this information. Peroneal tendon rupture 09/27/2019 Overview (09/27/2019): Added automatically from request for surgery [id number] Migraine without aura and wi thout status migrainosus, not intractable 08/07/2019 Assessment & Plan (08/14/2024 3:50 PM SENIOR QUALITY METHODS SPECIALIST): Her migraines are well controlled currently Continue [...] 24 hours 5. Follow-up 6-9 months. At today s visit migraine education was performed. We [...] treatment. She has also been taking NSAIDs [id number] so we will avoid indomethacin. I will give her samples of Nurtec ODT 75mg to take every other day for 2 weeks to help break this current headache cycle. At today s visit migraine education was performed. We [...] improvement. Assessment & Plan (09/09/2020 1:52 PM SENIOR QUALITY METHODS SPECIALIST): Headache pattern is currently stable on current [...] 08/07/2019 Assessment & Plan (08/14/2024 3:51 PM SENIOR QUALITY METHODS SPECIALIST): The patient has a history of restless [...] months. Assessment & Plan (09/09/2020 1:56 PM SENIOR QUALITY METHODS SPECIALIST): Ms. Becerril presents for evaluation of RLS. [...] 02/23/2020 Assessment & Plan (08/07/2019 1:46 PM SENIOR QUALITY METHODS SPECIALIST): Lab Results Component Value Date ALT 37 [...] and tenosynovitis noted. These findings were discussed. Plan: 1. We discussed both conservative and [...] Follow-up in 6 weeks for repeat evaluation. All questions were answered. Binu Edmond MD [employer] [facility]le Division Department of Orthopaedic Surgery [facility] Assessment & Plan (02/07/2019 12:27 PM CDT): Images from the original note were not included. Essential hypertension 05/08/2018 Assessment & Plan (05/21/2020 11:11 PM CDT): Vitals Ht 175.3 cm (5' 9 ) BMI 37.36 kg/m Wt Readings from Last 3 Encounters: 02/08/20 114.8 kg (253 lb) 10/16/19 121.2 kg (267 lb 3.2 oz) 08/07/19 119.7 kg (264 lb) Temp Readings from Last 3 Encounters: 02/08/20 36.7 C (98.1 F) (Oral) 10/16/19 36.5 C (97.7 F) (Temporal) 08/07/19 36.7 C (98 F) (Oral) BP Readings from Last 3 Encounters: 02/08/20 136/85 10/16/19 112/56 08/07/19 122/84 Pulse Readings from Last 3 Encounters: 10/16/19 97 08/07/19 78 08/07/19 102 She is encouraged to check her blood pressure periodically (followed by Dr. Srinath Paz). Assessment & Plan (02/08/2020 10:43 AM CDT): Vitals BP 136/85 (BP Location: Left arm, Patient Position: Sitting) Temp 36.7 C (98.1 F) (Oral) Ht 175.3 cm (5' 9 ) Wt 114.8 kg (253 lb) BMI 37.36 kg/m Denies headache, dizziness, chest pain, palpitations, shortness of breath, edema, orthopnea, PND. Assessment & Plan (08/07/2019 1:46 PM SENIOR QUALITY METHODS SPECIALIST): Vitals BP 122/84 (BP Location: Right arm, Patient Position: Sitting) Pulse 78 Temp 36.7 C (98 F) (Oral) Ht 175.3 cm (5' 9 ) Wt 119.7 kg (264 lb) BMI 38.99 kg/m Denies headache, dizziness, chest pain, palpitations, shortness of breath, edema, orthopnea, PND. Assessment & Plan (02/07/2019 12:28 PM CDT): Vitals BP 116/78 (BP Location: Right arm, Patient Position: Sitting) Pulse 72 Temp 36.3 C (97.4 F) (Oral) Resp 18 Ht 175.3 cm (5' 9.02 ) Wt 118.8 kg (262 lb) BMI 38.67 kg/m Assessment & Plan (11/08/2018 9:55 PM SENIOR QUALITY METHODS SPECIALIST): Vitals BP 130/78 (BP Location: Right arm, Patient Position: Sitting) Pulse 88 Ht 175.3 cm (5' 9.02 ) Wt 119.2 kg (262 lb 12.8 oz) BMI 38.79 kg/m Denies headache, dizziness, chest pain, palpitations, shortness [...] 10/04 Assessment & Plan (08/14/2024 3:51 PM SENIOR QUALITY METHODS SPECIALIST): Symptoms remained stable. We will monitor for now. Assessment & Plan (04/15/2023 1:58 PM CDT): The patient notes intermittent flare-ups of her symptoms, often positional with a slight progression more recently. Cymbalta has offered her some relief. She does [...] nightly. Assessment & Plan (09/09/2020 1:57 PM SENIOR QUALITY METHODS SPECIALIST): Currently managed on pramipexole 1.5mg nightly. Continue to monitor the left hand twitching with intermittent associated weakness of the left hand. Assessment & Plan (11/08/2018 9:56 PM SENIOR QUALITY METHODS SPECIALIST): Pramipexole increased per Neurology. Assessment & Plan (05/23/2018 10:25 PM CDT): Mirapex has helped with movement disorder. Obstructive sleep apnea on CPAP 09/28/2017 Assessment & Plan (05/21/2020 11:15 PM CDT): Stable Vitamin D deficiency 03/30/2017 Assessment & Plan (05/21/2020 11:16 PM CDT): Update lab as per orders. Assessment & Plan (08/07/2019 1:52 PM SENIOR QUALITY METHODS SPECIALIST): Continue D replacement. Assessment & Plan (02/07/2019 12:29 PM CDT): Images from the original note were not included. Assessment & Plan (11/08/2018 9:57 PM SENIOR QUALITY METHODS SPECIALIST): Update lab as per orders. Abnormal antibody titer 03/30/2017 Overview (03/30/2017): Anti smooth muscle antibody positive. LFT normal. Vitamin B12 deficiency 03/30/2017 Assessment & Plan (05/21/2020 11:15 PM CDT): Lab Results Component Value Date VITB12 691 02/15/2020 Assessment & Plan (08/07/2019 1:51 PM SENIOR QUALITY METHODS SPECIALIST): Continue B12 replacement. Fibromyalgia 03/30/2017 Assessment & Plan (11/26/2020 11:59 AM SENIOR QUALITY METHODS SPECIALIST): Chronic, stable and well-controlled on duloxetine from you psychiatrist. Encourage improved sleep patterns, regular exercise and a heart healthy diet. Assessment & Plan (05/21/2020 11:15 PM CDT): Continue duloxetine Assessment & Plan (02/08/2020 10:43 AM CDT): Continue duloxetine 60 mg daily. Assessment & Plan (08/07/2019 1:46 PM SENIOR QUALITY METHODS SPECIALIST): Continue duloxetine 60 mg daily. Assessment & Plan (02/07/2019 12:28 PM CDT): Continue duloxetine 60 mg daily. Assessment & Plan (11/08/2018 9:55 PM SENIOR QUALITY METHODS SPECIALIST): Continue gabapentin and duloxetine. Assessment & Plan (05/23/2018 10:26 PM CDT): Well controlled on present medication regimen. Continue same. Assessment & Plan (09/28/2017 10:54 AM SENIOR QUALITY METHODS SPECIALIST): Well controlled on current med regimen. Continue same. Undifferentiated connective tissue disease 03/29 Overview (05/21/2020): Images from the original note were not included. Extremity Sonography December 12, 2013, 14:36 at [facility] Final View Details RANDA AGUIRRE M.D. BUFFY THOMAS HO *FINAL REPORT* The radiology attending physician has personally reviewed this study, and has reviewed and/or edited this written report and agrees with it. ACC# Date Time Exam [id number] Dec 12, 2013 14:36:00 [id number] Extremity Sono Complete L [id number] Dec 12, 2013 14:36:00 [id number] Extremity Sono Complete R EXAMINATION: BILATERAL COMPLETE [...] 01/17/2021 Assessment & Plan (11/26/2020 11:58 AM SENIOR QUALITY METHODS SPECIALIST): Chronic, stable and well-controlled on plaqueinil. Continue [...] see her in [address] Rahman's mcc. I was unable to confirm a diagnosis [...] [facility] (GI, hepatology). She was seen at [facility] where a diagnosis of autoimmune disease [...] Raynaud's. Patient is aware of my planned mcc in mid-May and our intention to transition her care to one of the other Rheumatologists at [facility]. Assessment & Plan (02/08/2020 10:42 AM CDT): Undifferentiated connective tissue disease clinically stable on hydroxychloroquine regimen. She has had previous management for possible rheumatoid arthritis by Dr. Moses Rahman prior to his mcc. She has had positive ABDIRIZAK (generally low [...] . Assessment & Plan (08/07/2019 1:52 PM SENIOR QUALITY METHODS SPECIALIST): Undifferentiated connective tissue disease well controlled on [...] Continue current hydroxychloroquine regimen. Assessment & Plan (11/08/2018 9:54 PM SENIOR QUALITY METHODS SPECIALIST): Undifferentiated connective tissue disease, clinically table on [...] pressure would avoid nsaids. Take tylenol instead. Lolo prescribed as alternative by Dr. Martinez. Assessment & Plan (09/28/2017 10:54 AM SENIOR QUALITY METHODS SPECIALIST): Well controlled on current med regimen. Continue [...] date. Assessment & Plan (11/08/2018 9:55 PM SENIOR QUALITY METHODS SPECIALIST): Patient on immunosuppressive medications requiring periodic lab monitoring for drug safety. Update lab as per orders written. Acquired hypothyroidism 10/26/2012 Overview (12/24/2016): Hypothyroidism Assessment & Plan (05/21/2020 11:15 PM CDT): Lab Results Component Value Date TSH 2.35 08/07/2019 Assessment & Plan (02/08/2020 10:44 AM CDT): Lab Results Component Value Date TSH 2.35 08/07/2019 Assessment & Plan (08/07/2019 1:48 PM SENIOR QUALITY METHODS SPECIALIST): Monitored by Dr. Paz. Update lab as per orders. Assessment & Plan (02/07/2019 12:29 PM CDT): Lab Results Component Value Date TSH 3.030 03/30/2017 Assessment & Plan (11/08/2018 9:56 PM SENIOR QUALITY METHODS SPECIALIST): Management per Dr. Paz. Assessment & Plan [...] and and possibly seek help of a transmission line engineer. Assessment & Plan (08/07/2019 1:46 PM SENIOR QUALITY METHODS SPECIALIST): An optimal BMI (body mass index) is [...] closely. Assessment & Plan (11/08/2018 9:54 PM SENIOR QUALITY METHODS SPECIALIST): An optimal BMI (body mass index) is between 20 and 25. Encourage weight loss. Each pound of weight lost unloads 3-4 pounds per square inch pressure from weight bearing joints. Diet and exercise are the keys to weight management. Assessment & Plan (09/28/2017 10:53 AM SENIOR QUALITY METHODS SPECIALIST): An optimal BMI (body mass index) is [...] Arthritis 10/26/2012 03/29/2017 Overview (12/23/2016): Inflammatory arthritis Immunizations Name Administration Dates Next Due Hep [...] Vaccination .25 Ml dose (12+ YRS) 07/11/2023 Social History Tobacco Use Types Packs/Day Years [...] on file Legal Sex Female 11:38 AM SENIOR QUALITY METHODS SPECIALIST Gender Identity Not on file Sexual Orientation Straight 03/14/2020 4: 51 PM CDT Last Filed Vital Signs Vital Sign Reading Time Taken Comments Blood Pressure 118/74 08/14/2024 3:14 PM SENIOR QUALITY METHODS SPECIALIST Pulse 89 08/14/2024 3:14 PM SENIOR QUALITY METHODS SPECIALIST Temperature 36.8 C (98.3 F) 07/04/2024 10:52 AM CDT Respiratory Rate 16 03/08/2024 2:01 PM CDT Oxygen Saturation 95% 08/14/2024 3:14 PM SENIOR QUALITY METHODS SPECIALIST Inhaled Oxygen Concentration - - Weight 117.3 kg (258 lb 9.6 oz) 08/14/2024 3:14 PM SENIOR QUALITY METHODS SPECIALIST Height 175.3 cm (5' 9 ) 08/14/2024 3:14 PM SENIOR QUALITY METHODS SPECIALIST Body Mass Index 38.19 08/14/2024 3:14 PM SENIOR QUALITY METHODS SPECIALIST Plan of Treatment Upcoming Encounters Date Type Department Care Team (Late st Contact Info) Description 01/16/2025 10:40 AM CDT Hospital Encounter [facility] Digestive [facility] [address] [place] [address] Yesy Jorge MD [address] [place] [address] 01/16/2025 10:40 AM CDT - 01/16/2025 11:10 AM CDT Surgery [facility] [address] [place] [address] Yesy Jorge MD [address] [place] [address] COLONOSCOPY Scheduled Procedures Name Priority Associated Diagnoses Date/Ti me COLONOSCOPY Screen for colon cancer Family history of colon cancer 01/16/2025 10:40 AM CDT Goals Goal Patient Goal Type Associated Problems Recent Progress Patient-Stated? Author CCM Chronic Pain Care Plan Chronic Care Management On track(2019 1:14 PM SENIOR QUALITY METHODS SPECIALIST) Ghislaine Mondragon, RN Note: Problem: Chronic Pain Goals: 1. Minimize further functional decline 2. Maximize quality of life 3. Control pain Strategies: - Activity/exercise program recommendation - Conservative stepwise pain medicine strategy with multi-disciplinary approach - Recommend healthy lifestyle strategies and compensatory methods as needed Procedures Procedure Name Priority Date/Time Associated Diagnosis Comments US THYROID Schedule Routine, Read Routine (OP Routine) 08/14/2024 1:22 PM SENIOR QUALITY METHODS SPECIALIST Thyroid nodule US BREAST LEFT LIMITED Schedule Routine, Read Routine (OP Routine) 08/07/2024 9:35 AM SENIOR QUALITY METHODS SPECIALIST Mass of left breast, unspecified quadrant Other abnormal and inconclusive findings on diagnostic imaging of breast SCREENING MAMMOGRAM BILATERAL W KORY Schedule Routine, Read Routine (OP Routine) 01/02/2024 2:08 PM CDT Screening mammogram, encounter for SERUM HEPATITIS PANEL Routine 03/21/2015 2:39 PM CDT COLONOSCOPY 10/02/2013 12:00 AM SENIOR QUALITY METHODS SPECIALIST from Last 3 Months or Most Recently Relevant to Health Maintenance Results * US Thyroid (08/14/2024 1:22 PM SENIOR QUALITY METHODS SPECIALIST) Anatomical Region Laterality Modality Head and Neck N/A Ultrasound 08/14/2024 1:43 PM SENIOR QUALITY METHODS SPECIALIST Impressions 08/14/2024 1:43 PM SENIOR QUALITY METHODS SPECIALIST Stable right thyroid nodule, previously biopsied. Electronically signed by: Luis Paulino M.D. Narrative 08/14/2024 1:43 PM SENIOR QUALITY METHODS SPECIALIST Thyroid sonogram HISTORY:Thyroid nodule. Technique: Ultrasound examination [...] previously. No other significant nodules are detected. Procedure Note [...] US Breast Left Limited (08/07/2024 9:35 AM SENIOR QUALITY METHODS SPECIALIST) Anatomical Region Laterality Modality Breast Left Ultrasound 08/07/2024 9:58 AM SENIOR QUALITY METHODS SPECIALIST Impressions 08/07/2024 1:19 PM SENIOR QUALITY METHODS SPECIALIST 2 masses in the upper outer quadrant [...] Savanna Hamm M.D. Narrative 08/07/2024 1:19 PM SENIOR QUALITY METHODS SPECIALIST EXAMINATION: LEFT BREAST ULTRASOUND HISTORY: 49-year-old female [...] internal septations is unchanged. No internal vascularity. Procedure Note Savanna Hamm MD [...] it. Electronically signed by: Savanna Hamm M.D. Alvina BAER IMG MAMMO PROCEDURES Final Result [...] compared to prior imaging studies performed at [facility]. [facility] on 08/29/2017, 10/25/2018 and 06/10/2022. There are scattered areas of fibroglandular density. There is an oval mass in the upper outer quadrant of the left breast. There is no suspicious abnormality in the right breast. Impression: Mass in the left breast requires additional evaluation. An ultrasound exam is recommended at this time. OVERALL FINAL ASSESSMENT: BI-RADS CATEGORY 0: Incomplete: Need additional imaging evaluation. Procedure Note Carlota Aguiar MD - 01/04/2024 Mammogram Technique: Bilateral Digital Breast Tomosynthesis, Bilateral C-view 2D Screening mammogram. Views obtained: bilateral craniocaudal and bilateral mediolateral oblique. Computer Aided Detection was performed. Mammogram Findings: The present examination has been compared to prior imaging studies performed at [facility]. [facility] on 08/29/2017, 10/25/2018 and 06/10/2022. There are [...] HISTORICAL RESULTS * COLONOSCOPY (10/02/2013 12:00 AM SENIOR QUALITY METHODS SPECIALIST) Anatomical Region Laterality Modality Other Narrative 10/02/2013 12:00 AM SENIOR QUALITY METHODS SPECIALIST Ordered by an unspecified provider. Procedure Note ProviderAna MD - 10/02/2013 12:00 AM CST PROCEDURE REPORT Patient: SASKIA BECERRIL Account: [id number] Room No: : 1975 Patient Type: SDS Attend.: Yesy Jorge M.D. Admit Date: 10/02/2013 [...] AM us Historical Provider ENDOSCOPY PROCEDURES Kristina l Result from Last 3 Months or Most Recently Relevant to Health Maintenance [place] [place] [place] [place] Care Teams Monument Mason Relationship Specialty Start Date End Date Srinath Paz MD [address] [facility] [address] [place] [address] PCP - General 12/17/16
--- OUTSIDE RECORDS SUMMARY | 2024-10-24 17:04 | XMS_ITS | Clinical Summary ---
Author Organization [facility] Address [address] [place] [address] Care Team Providers Care Collar Sewer Name Role Phone Srinath Paz MD Primary [...] reviewed. Assessment & Plan (09/09/2020 1:54 PM GAS CHECK PAD MAKER): She currently feels as if her neuropathy symptoms are stable. She continues to take gabapentin nightly with adequate relief and denies any significant side effects. Peroneal tendonitis of left lower extremity 05/2020 Overview (07/28/2020): Added automatically from request for surgery [id number] Neuropathic pain 06/25/2020 Left ankle pain 06/17/2020 [...] It is important that you continue to igoz-un-aeaz other than for essential outings. Feel free [...] is important that you adhere to the [id number] orders for the time being. Feel free to reach out to us if you have additional questions after you review this information. Peroneal tendon rupture 09/27/2019 Overview (09/27/2019): Added automatically from request for surgery [id number] Migraine without aura and wi thout status migrainosus, not intractable 08/07/2019 Assessment & Plan (08/14/2024 3:50 PM GAS CHECK PAD MAKER): Her migraines are well controlled currently Continue [...] treatment. She has also been taking NSAIDs klad-lfm-[id number] so we will avoid indomethacin. I will [...] improvement. Assessment & Plan (09/09/2020 1:52 PM GAS CHECK PAD MAKER): Headache pattern is currently stable on current [...] 08/07/2019 Assessment & Plan (08/14/2024 3:51 PM GAS CHECK PAD MAKER): The patient has a history of restless [...] months. Assessment & Plan (09/09/2020 1:56 PM GAS CHECK PAD MAKER): Ms. Becerril presents for evaluation of RLS. [...] 02/23/2020 Assessment & Plan (08/07/2019 1:46 PM GAS CHECK PAD MAKER): Lab Results Component Value Date ALT 37 [...] All questions were answered. Binu Edmond MD Waste Water Plant Operator Foot and Ankle Division Department of Orthopaedic Surgery [facility] Assessment & Plan (02/07/2019 12:27 PM [...] PND. Assessment & Plan (08/07/2019 1:46 PM GAS CHECK PAD MAKER): Vitals BP 122/84 (BP Location: Right arm, [...] kg/m Assessment & Plan (11/08/2018 9:55 PM GAS CHECK PAD MAKER): Vitals BP 130/78 (BP Location: Right arm, [...] 10/04 Assessment & Plan (08/14/2024 3:51 PM GAS CHECK PAD MAKER): Symptoms remained stable. We will monitor for [...] nightly. Assessment & Plan (09/09/2020 1:57 PM GAS CHECK PAD MAKER): Currently managed on pramipexole 1.5mg nightly. Continue to monitor the left hand twitching with intermittent associated weakness of the left hand. Assessment & Plan (11/08/2018 9:56 PM GAS CHECK PAD MAKER): Pramipexole increased per Neurology. Assessment & Plan (05/23/2018 10:25 PM CDT): Mirapex has helped with movement disorder. Obstructive sleep apnea on CPAP 09/28/2017 Assessment & Plan (05/21/2020 11:15 PM CDT): Stable Vitamin D deficiency 03/30/2017 Assessment & Plan (05/21/2020 11:16 PM CDT): Update lab as per orders. Assessment & Plan (08/07/2019 1:52 PM GAS CHECK PAD MAKER): Continue D replacement. Assessment & Plan (02/07/2019 12:29 PM CDT): Images from the original note were not included. Assessment & Plan (11/08/2018 9:57 PM GAS CHECK PAD MAKER): Update lab as per orders. Abnormal antibody titer 03/30/2017 Overview (03/30/2017): Anti smooth muscle antibody positive. LFT normal. Vitamin B12 deficiency 03/30/2017 Assessment & Plan (05/21/2020 11:15 PM CDT): Lab Results Component Value Date VITB12 691 02/15/2020 Assessment & Plan (08/07/2019 1:51 PM GAS CHECK PAD MAKER): Continue B12 replacement. Fibromyalgia 03/30/2017 Assessment & Plan (11/26/2020 11:59 AM GAS CHECK PAD MAKER): Chronic, stable and well-controlled on duloxetine from you psychiatrist. Encourage improved sleep patterns, regular exercise and a heart healthy diet. Assessment & Plan (05/21/2020 11:15 PM CDT): Continue duloxetine Assessment & Plan (02/08/2020 10:43 AM CDT): Continue duloxetine 60 mg daily. Assessment & Plan (08/07/2019 1:46 PM GAS CHECK PAD MAKER): Continue duloxetine 60 mg daily. Assessment & Plan (02/07/2019 12:28 PM CDT): Continue duloxetine 60 mg daily. Assessment & Plan (11/08/2018 9:55 PM GAS CHECK PAD MAKER): Continue gabapentin and duloxetine. Assessment & Plan (05/23/2018 10:26 PM CDT): Well controlled on present medication regimen. Continue same. Assessment & Plan (09/28/2017 10:54 AM GAS CHECK PAD MAKER): Well controlled on current med regimen. Continue same. Undifferentiated connective tissue disease 03/29 Overview (05/21/2020): Images from the original note were not included. Extremity Sonography December 12, 2013, 14:36 at [facility] Final View Details RANDA AGUIRRE M.D. BUFFY THOMAS *FINAL REPORT* The radiology attending physician has personally reviewed this study, and has reviewed and/or edited this written report and agrees with it. ACC# Date Time Exam [id number] Dec 12, 2013 14:36:00 10997 Extremity Sono Complete L [id number] Dec 12, 2013 14:36:00 17473 Extremity Sono Complete R EXAMINATION: BILATERAL COMPLETE [...] 01/17/2021 Assessment & Plan (11/26/2020 11:58 AM GAS CHECK PAD MAKER): Chronic, stable and well-controlled on plaqueinil. Continue [...] see her in [address] Rahman's intermediate. I was unable to confirm a diagnosis [...] Rush (GI, hepatology). She was seen at [facility] where a diagnosis of autoimmune disease [...] Raynaud's. Patient is aware of my planned intermediate in mid-May and our intention to transition her care to one of the other Rheumatologists at [facility]. Assessment & Plan (02/08/2020 10:42 AM CDT): Undifferentiated connective tissue disease clinically stable on hydroxychloroquine regimen. She has had previous management for possible rheumatoid arthritis by Dr. Moses Rahman prior to his intermediate. She has had positive ABDIRIZAK (generally low [...] . Assessment & Plan (08/07/2019 1:52 PM GAS CHECK PAD MAKER): Undifferentiated connective tissue disease well controlled on [...] regimen. Assessment & Plan (11/08/2018 9:54 PM GAS CHECK PAD MAKER): Undifferentiated connective tissue disease, clinically table on [...] pressure would avoid nsaids. Take tylenol instead. [place] prescribed as alternative by Dr. Martinez. Assessment & Plan (09/28/2017 10:54 AM GAS CHECK PAD MAKER): Well controlled on current med regimen. Continue [...] date. Assessment & Plan (11/08/2018 9:55 PM GAS CHECK PAD MAKER): Patient on immunosuppressive medications requiring periodic lab monitoring for drug safety. Update lab as per orders written. Acquired hypothyroidism 10/26/2012 Overview (12/24/2016): Hypothyroidism Assessment & Plan (05/21/2020 11:15 PM CDT): Lab Results Component Value Date TSH 2.35 08/07/2019 Assessment & Plan (02/08/2020 10:44 AM CDT): Lab Results Component Value Date TSH 2.35 08/07/2019 Assessment & Plan (08/07/2019 1:48 PM GAS CHECK PAD MAKER): Monitored by Dr. Paz. Update lab as per orders. Assessment & Plan (02/07/2019 12:29 PM CDT): Lab Results Component Value Date TSH 3.030 03/30/2017 Assessment & Plan (11/08/2018 9:56 PM GAS CHECK PAD MAKER): Management per Dr. Paz. Assessment & Plan [...] and and possibly seek help of a drug safety data management specialist. Assessment & Plan (08/07/2019 1:46 PM GAS CHECK PAD MAKER): An optimal BMI (body mass index) is [...] closely. Assessment & Plan (11/08/2018 9:54 PM GAS CHECK PAD MAKER): An optimal BMI (body mass index) is between 20 and 25. Encourage weight loss. Each pound of weight lost unloads 3-4 pounds per square inch pressure from weight bearing joints. Diet and exercise are the keys to weight management. Assessment & Plan (09/28/2017 10:53 AM GAS CHECK PAD MAKER): An optimal BMI (body mass index) is [...] Type Department Care Team Description 10/22/2024 Telephone [facility] Rheumatology at [address], [place] [address] Mariana Lovett MD Emergency room visit notes 10/18/2024 Telephone [facility] [address] [address] Rebecca Carl MA 10/16/2024 Telephone [facility] Rheumatology at [address] [place] [address] Carlota Hein, KEYLA Pain/ Flare 09/04/2024 Orders Only [facility] [address] [address] Ana Rios MD Restless leg syndrome (Primary Dx) 08/27/2024 9:10 AM GAS CHECK PAD MAKER Office Visit [facility] [address] [facility] 6[address] [place] [address] [place] [address] Dereck Zapata MD Posterior tibial tendinitis of left leg (Primary Dx) 08/14/2024 3:30 PM GAS CHECK PAD MAKER [facility] [address] [facility] [address] [place] [phone] Ana Rios MD Migraine without aura and without status migrainosus, not intractable (Primary Dx); Restless leg syndrome; Ulnar neuropathy of both upper extremities 08/14/2024 12:58 PM GAS CHECK PAD MAKER - 08/14/2024 11:59 PM GAS CHECK PAD MAKER Hospital Encounter [facility] [address] [place] [phone] Thyroid nodule Discharge Disposition: Discharge to home or self care 08/14/2024 Telephone [facility] Endocrinology at [facility] [address] [facility] [address], [place] [address] Crys Rodriguez MA 08/07/2024 8:18 AM GAS CHECK PAD MAKER - 08/07/2024 11:59 PM GAS CHECK PAD MAKER Hospital Encounter [facility] Breast Imaging [facility] ([facility]) [address] [place] [address] Mass of left breast, unspecified quadrant; Other abnormal and inconclusive findings on diagnostic imaging of breast Discharge Disposition: Discharge to home or self care 07/31/2024 Telephone [facility] Endocrinology at [facility] [address] [facility] [address], [place] [phone] Maura Dawson LPN prior Thyroid US order [...] Grandfather Jose Angel Marquez Maternal Grandmother Saskiacarlos Mendozaes Mother Mara Gomes Alive Paternal Grandmother Heena [...] on file Legal Sex Female 11:38 AM GAS CHECK PAD MAKER Gender Identity Not on file Sexual Orientation Straight 03/14/2020 4: 51 PM CDT Obstetrics History Last Filed Vital Signs Vital Sign Reading Time Taken Comments Blood Pressure 118/74 08/14/2024 3:14 PM GAS CHECK PAD MAKER Pulse 89 08/14/2024 3:14 PM GAS CHECK PAD MAKER Temperature 36.8 C (98.3 F) 07/04/2024 10:52 AM CDT Respiratory Rate 16 03/08/2024 2:01 PM CDT Oxygen Saturation 95% 08/14/2024 3:14 PM GAS CHECK PAD MAKER Inhaled Oxygen Concentration - - Weight 117.3 kg (258 lb 9.6 oz) 08/14/2024 3:14 PM GAS CHECK PAD MAKER Height 175.3 cm (5' 9 ) 08/14/2024 3:14 PM GAS CHECK PAD MAKER Body Mass Index 38.19 08/14/2024 3:14 PM GAS CHECK PAD MAKER Plan of Treatment Upcoming Encounters Date Type Department Care Team (Late st Contact Info) Description 01/16/2025 10:40 AM CDT Hospital Encounter [address] [address] Yesy Jorge MD [address] [place] [address] DR [address] [place] [address] 01/16/2025 10:40 AM CDT - 01/16/2025 11:10 AM CDT Surgery [address] [address] Yesy Jorge MD [address] [place] [address] DR [address] [place] [address] COLONOSCOPY Scheduled Procedures Name Priority Associated Diagnoses [...] Chronic Care Management On track(2019 1:14 PM GAS CHECK PAD MAKER) Ghislaine Mondragon, RN Note: Problem: Chronic Pain [...] Read Routine (OP Routine) 08/14/2024 1:22 PM GAS CHECK PAD MAKER Thyroid nodule US BREAST LEFT LIMITED Schedule Routine, Read Routine (OP Routine) 08/07/2024 9:35 AM GAS CHECK PAD MAKER Mass of left breast, unspecified quadrant Other abnormal and inconclusive findings on diagnostic imaging of breast SCREENING MAMMOGRAM BILATERAL W KORY Schedule Routine, Read Routine (OP Routine) 01/02/2024 2:08 PM CDT Screening mammogram, encounter for SERUM HEPATITIS PANEL Routine 03/21/2015 2:39 PM CDT COLONOSCOPY 10/02/2013 12:00 AM GAS CHECK PAD MAKER from Last 3 Months or Most Recently Relevant to Health Maintenance Results * US Thyroid (08/14/2024 1:22 PM GAS CHECK PAD MAKER) Anatomical Region Laterality Modality Head and Neck N/A Ultrasound 08/14/2024 1:43 PM GAS CHECK PAD MAKER Impressions 08/14/2024 1:43 PM GAS CHECK PAD MAKER Stable right thyroid nodule, previously biopsied. Electronically signed by: Luis Paulino M.D. Narrative 08/14/2024 1:43 PM GAS CHECK PAD MAKER Thyroid sonogram HISTORY:Thyroid nodule. Technique: Ultrasound examination [...] thyroid nodule, previously biopsied. Electronically signed by: Lusi Paulino M.D. us Ermias Muñiz MD IMG US PROCEDURES Final Resu lt * US Breast Left Limited (08/07/2024 9:35 AM GAS CHECK PAD MAKER) Anatomical Region Laterality Modality Breast Left Ultrasound 08/07/2024 9:58 AM GAS CHECK PAD MAKER Impressions 08/07/2024 1:19 PM GAS CHECK PAD MAKER 2 masses in the upper outer quadrant [...] and agrees with it. Electronically signed by: Svaanna Hamm M.D. Narrative 08/07/2024 1:19 PM GAS CHECK PAD MAKER EXAMINATION: LEFT BREAST ULTRASOUND HISTORY: 49-year-old female [...] compared to prior imaging studies performed at [facility]. [facility] on 08/29/2017, 10/25/2018 and 06/10/2022. There are [...] compared to prior imaging studies performed at [facility] on 08/29/2017, 10/25/2018 and 06/10/2022. There are [...] Girish Martinez MD LAB BLOOD ORDERABLES Kristina salmon Result HISTORICAL RESULTS * COLONOSCOPY (10/02/2013 12:00 AM GAS CHECK PAD MAKER) Anatomical Region Laterality Modality Other Narrative 10/02/2013 12:00 AM GAS CHECK PAD MAKER Ordered by an unspecified provider. Procedure Note ProviderAna MD - 10/02/2013 12:00 AM CST PROCEDURE REPORT Patient: SASKIA BECERRIL Account: [id number] Room No: : 1975 Patient Type: [facility] Attend.: Yesy Jorge M.D. Admit Date: [...] Most Recently Relevant to Health Maintenance Insurance BLUE ACCESS MD BLUE ACCESS MD BLUE ACCESS MD Care Teams Collar Sewer Relationship Specialty Start Date End Date Srinath Paz MD [address] [facility] [address] [place] [address] PCP - General 12/17/16
--- OUTSIDE RECORDS SUMMARY | 2024-10-24 17:04 | XMS_ITS | Encounter Summary ---
Author Organization [facility] Healthcare Address [address] [place] [address] Care Team Providers Care Terrazzo Worker Name Role Phone Srinath Paz MD Primary Care Provider Reason for Visit * Diagnostic Imaging (Routine) - Pending Review Specialty Diagnoses / Procedures Referred By Contac jerald Referred To Contact Procedures Breast Imaging Screening Outside Reference Transcribed Order, Provider Referral ID Status Reason Start Date Expiration Date V isits Requested Visits Authorized [id number] Pending Review 12/29/2023 01/27/2025 1 1 Encounter Details Date Type Department Care Team (Late st Contact Info) Description 10/25/2018 Hospital Encounter [facility] [address] [place] [address] Social History Tobacco Use Types Packs/Day Years [...] on file Legal Sex Female 11:38 AM 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 MANAGER Gender Identity Not on file Sexual Orientation [...] Description 01/16/2025 10:40 AM CDT Hospital Encounter [address] [address] Yesy Jorge MD [address] [facility] [address] [place] [address] 01/16/2025 10:40 AM CDT - 01/16/2025 11:10 AM CDT Surgery [address] [address] Yesy Jorge MD [address] [facility] [address] [place] [address] COLONOSCOPY Scheduled Procedures Name Priority Associated Diagnoses Date/Ti me COLONOSCOPY Screen for colon cancer Family history of colon cancer 01/16/2025 10:40 AM CDT documented as of this encounter Goals Goal Patient Goal Type Associated Problems Recent Progress Patient-Stated? Author CCM Chronic Pain Care Plan Chronic Care Management On track(2019 1:14 PM FAST FOOD ASSISTANT RESTAURANT MANAGER) No Ghislaine Cox RN Note: Problem: Chronic [...] SCREENING OUTSIDE REFERENCE Routine 10/25/2018 12:00 AM FAST FOOD ASSISTANT RESTAURANT MANAGER documented in this encounter Results * Breast Imaging Screening Outside Reference (10/25/2018 12:00 AM FAST FOOD ASSISTANT RESTAURANT MANAGER) Impressions [facility] - 12/29/2023 2:24 PM CDT These images are for Reference purposes only and have not been reviewed by [facility]. There will be no report generated by a [facility] Radiologist. Narrative [facility] - 12/29/2023 2:24 PM CDT EXAMINATION: Images For Reference Purposes Only us Provider Transcribed Order IMG MAMMO PROCEDURES Final Result [facility] documented in this encounter Visit Diagnoses Not on filedocumented in this encounter Care Teams Terrazzo Worker Relationship Specialty Start Date End Date Srinath aPz MD [address] [facility] [address] [place] [address] PCP - General 12/17/16 documented as of this encounter
--- OUTSIDE RECORDS SUMMARY | 2024-10-24 17:04 | XMS_ITS | Encounter Summary ---
Author Organization [facility] Healthcare Address [address] [place] [address] Care Team Providers Care Trust Vault Clerk Name Role Phone Srinath Paz MD Primary Care Provider Reason for Visit * Diagnostic Imaging (Routine) - Pending Review Specialty Diagnoses / Procedures Referred By Contac jerald Referred To Contact Procedures Breast Imaging Screening Outside Reference Transcribed Order, Provider Referral ID Status Reason Start Date Expiration Date V isits Requested Visits Authorized [id number] Pending Review 12/29/2023 01/27/2025 1 1 Encounter Details Date Type Department Care Team (Late st Contact Info) Description 08/29/2017 Hospital Encounter [facility] [address] [place] [address] Social History Tobacco Use Types Packs/Day Years [...] on file Legal Sex Female 11:38 AM SUPERVISOR ROCKET PROPELLANT PLANT Gender Identity Not on file Sexual Orientation [...] Description 01/16/2025 10:40 AM CDT Hospital Encounter [address] [address] Yesy Jorge MD [address] [facility] [address] [place] [address] 01/16/2025 10:40 AM CDT - 01/16/2025 11:10 AM CDT Surgery [address] [address] Yesy Jorge MD [address] [facility] [address] [place] [address] COLONOSCOPY Scheduled Procedures Name Priority Associated Diagnoses Date/Ti me COLONOSCOPY Screen for colon cancer Family history of colon cancer 01/16/2025 10:40 AM CDT documented as of this encounter Goals Goal Patient Goal Type Associated Problems Recent Progress Patient-Stated? Author CCM Chronic Pain Care Plan Chronic Care Management On track(2019 1:14 PM SUPERVISOR ROCKET PROPELLANT PLANT) No Ghislaine Cox RN Note: Problem: Chronic [...] SCREENING OUTSIDE REFERENCE Routine 08/29/2017 12:00 AM SUPERVISOR ROCKET PROPELLANT PLANT documented in this encounter Results * Breast Imaging Screening Outside Reference (08/29/2017 12:00 AM SUPERVISOR ROCKET PROPELLANT PLANT) Impressions [facility] - 12/29/2023 2:24 PM CDT These images are for Reference purposes only and have not been reviewed by [facility]. There will be no report generated by a [facility] Radiologist. Narrative [facility]MO[facility] - 12/29/2023 2:24 PM CDT EXAMINATION: Images For Reference Purposes Only us Provider Transcribed Order IMG MAMMO PROCEDURES Final Result [facility] documented in this encounter Visit Diagnoses Not on filedocumented in this encounter Care Teams Trust Vault Clerk Relationship Specialty Start Date End Date Srinath Paz MD [address] [facility] [address] [place] [address] PCP - General 12/17/16 documented as of this encounter
--- OUTSIDE RECORDS SUMMARY | 2024-10-24 17:04 | XMS_ITS | Clinical Summary ---
Author Organization [facility] Address [address] [place] [address] Phone Care Team Providers Care Physician Allergist Immunologist Name Role Phone Srinath Paz MD Primary Care Provider [phone] Allergies Active Allergy Reactions Criticality Noted Date Comments Meperidine Nausea and Vomiting Low 06/18/2015 Medications levothyroxine 112 mcg tablet Take 112 mcg by mouth daily store lead. Active DULoxetine (CYMBALTA) 60 mg Capsule, Delayed [...] tablet Take 250 mg by mouth daily store lead. Active turmeric-turmer ic root extract 450-50 mg [...] on file Legal Sex Female 5:06 AM BIOMEDICAL ANALYTICAL SCIENTIST Gender Identity Not on file Sexual Orientation [...] BS BLUE ACCESS/TRUE BLUE PPO Care Teams Physician Allergist Immunologist Relationship Specialty Start Date End Date Srinath Paz MD PCP - General Family Practice 06/18/15
[2024-10-24 17:52] LABS: Basophils Absolute Auto 0.1 K/mm3 (0.0-0.1); Basophils Percent Auto 0.8 % (0.2-1.2); Eosinophils Absolute Auto 0.2 K/mm3 (0-0.3); Eosinophils Percent Auto 2.1 % (0-4.4); Hematocrit 38.8 % (37.0-47.0); Hemoglobin 13.2 g/dL (12.0-15.0); Immature Granulocyte Absolute 0.09 K/mm3 (0.00-0.031); Immature Granulocyte Percent A 1.2 % (0-0.5); Lymphocytes Absolute Auto 2.15 K/mm3 (0.9-3.2); Lymphocytes Percent Auto 29.7 % (18.3-44.2); Mean Corpuscular Hemoglobin 29.9 pg (26-34); Mean Platelet Volume 10.5 fl (7.4-10.4); Monocytes Absolute Auto 0.6 K/mm3 (0.1-0.6); Monocytes Percent Auto 7.9 % (2.6-8.5); Neutrophils Absolute Auto 4.2 K/mm3 (1.3-6.7); Neutrophils Percent Auto 58.3 % (45.5-73.1); Platelet Count Result 239 k/mm3 (150-375); Red Blood Count 4.41 M/mm3 (4.2-5.4); Red Cell Distribution Width 12.9 % (11.5-14.5); White Blood Count 7.3 K/mm3 (4.5-10.0)
[2024-10-24 18:07] LABS: Alanine Aminotransferase 21 U/L (6-35); Albumin Level 3.6 g/dL (3.5-5.1); Alkaline Phosphatase 97 U/L (38-126); Amylase 63 U/L (30-110); Anion Gap 10 mmol/L (4-12); Aspartate Amino Transferase 19 U/L (14-36); Bilirubin,Total 0.6 mg/dL (0.2-1.3); Blood Urea Nitrogen 11 mg/dL (7-17); Calcium 8.9 mg/dL (8.4-10.2); Carbon Dioxide 23 mmol/L (22-30); Chloride 105 mmol/L (98-107); Estimated Glomerular Filt Rate > 60; Glucose 89 mg/dL (65-110); Lipase 24 U/L (23-300); Potassium 3.6 mmol/L (3.4-5.0); Sodium 138 mmol/L (137-145)
== END 2024-10-24 17:02 | disposition home or self-care (01) ==
LOC: ANHLAB 17:01
PROVIDERS: PCP Family Medicine; Visit Provider Family Medicine
DX: R07.9 Chest pain, unspecified (principal)
CPT/HCPCS: 36415; 80053; 82150; 83690; 85025